=== PATIENT | male | born 1955 | race Caucasian/White ===

== ENCOUNTER 2020-02-06 13:52 | Outpatient (CLI) | payer MEDICARE, SELFPAY ==
--- NOTE | ~2020-02-06 | XR_ITS ---
XR chest 2V DATE: 02/06/2020 14:19 INDICATION: Morning Cough. TECHNIQUE: PA and lateral views COMPARISON: 06/26/2008 PA and lateral chest FINDINGS: Normal heart size. No hilar or mediastinal enlargement. Mild aortic calcification and unfol ding. Moderate bilateral hyperinflation. No pulmonary infiltrate or consolidation, pleural effusion or pulmonary vascular congestion or pneumo thorax. Diffuse idiopathic skeletal hyperostosis of the thoracic spine. Moderate osteopenia is suggested. IMPRESSION: Moderate bilateral pulmonary hyperinflation. No active cardiopulmonary disease Reviewed, dictated and finalized at location B. IMPRESSION: Moderate bilateral pulmonary hyperinflation. No active cardiopulmon robbie disease
== END 2020-02-06 13:53 | disposition home or self-care (01) ==
LOC: CHSLAB 13:56
PROVIDERS: PCP Family Medicine; Visit Provider Family Medicine
DX: R05 Cough (principal)
CPT/HCPCS: 71046

== ENCOUNTER 2020-02-09 08:38 | Outpatient (CLI) | payer MEDICARE, SELFPAY | END 2020-02-09 08:39 | disposition home or self-care (01) | PROVIDERS: PCP Family Medicine; Visit Provider Family Medicine | DX: R05 Cough (principal) | CPT/HCPCS: 94060; 94726; 94729 ==

== ENCOUNTER 2020-06-24 12:20 | Outpatient (CLI) | payer MEDICARE, SELFPAY ==
[2020-06-24 13:46] LABS: Influenza Control Valid (Valid)
[2020-06-24 13:47] LABS: SARS-CoV-2 Ag Negative (Negative)
== END 2020-06-24 12:21 | disposition home or self-care (01) ==
LOC: CHSLAB 12:23
PROVIDERS: PCP Family Medicine; Visit Provider Family Medicine
DX: J01.90 Acute sinusitis, unspecified (principal); Z20.828 Contact with and (suspected) exposure to other viral communicable diseases
CPT/HCPCS: 36415; 87426; 87804

== ENCOUNTER 2020-07-05 09:09 | Outpatient (CLI) | payer MEDICARE, SELFPAY ==
--- NOTE | ~2020-07-05 | XR_ITS ---
XR lumbar spine 2-3V DATE: 07/05/2020 09:35 INDICATION: Chronic low back pain. Several surgeries. TECHNIQUE: AP, lateral, coned lateral lumbosacral views COMPARISON: 07/09/2006 portable lateral lumbar spine views FINDINGS: Status post posterior spinal fusion with pedicle screws and rods at L2-L5. No pedicle screw or richard fracture or displacement is noted. There is interbody spinal fusion at L2-3, L3-4 and L4-5. The interbody device at L4-5 projects life educator iorly over the lumbar spinal canal, likely contributing to the lumbar spinal stenosis at this level. There is retrolisthesis at the L2-3 level. There is anterolisthesis at L3-4 and L4-5. There is mild concavity of the superior vertebral endplates of L2 and L3 with mild anterior wedging o f these vertebral bodies. IMPRESSION: Postoperative changes of the lumbar spine including posterior and interbody spinal fusion at L2-L5 Interbody fusion device at L4-5 projects posteriorly at the lumbar spinal canal, likely contributing to spinal stenosis Mild retrolisthesis at L2-3 and anterolisthesis at L3-4 and L4-5 Reviewed, dictated and finalized at location B. SEWER IMPRESSION: Postoperative changes of the lumbar spine including posterior and i nterbody spinal fusion at L2-L5 Interbody fusion device at L4-5 projects posteriorly at the lumbar spinal canal , likely contributing to spinal stenosis Mild retrolisthesis at L2-3 and anterolisthesis at L3-4 and L4-5
== END 2020-07-05 09:10 | disposition home or self-care (01) ==
LOC: CHSLAB 09:11 → CHSIMG 09:13
PROVIDERS: PCP Nurse Practitioner Adult Health; Visit Provider Nurse Practitioner Adult Health
DX: M54.5 Low back pain (principal)
CPT/HCPCS: 72100

== ENCOUNTER 2020-07-15 15:56 | Outpatient (CLI) | payer MEDICARE, SELFPAY ==
[2020-07-15 16:37] LABS: Influenza Control Valid (Valid); SARS-CoV-2 Ag Negative (Negative)
== END 2020-07-15 15:57 | disposition home or self-care (01) ==
LOC: CHSLAB 15:59
PROVIDERS: PCP Family Medicine; Visit Provider Family Medicine
DX: R05 Cough (principal); Z20.828 Contact with and (suspected) exposure to other viral communicable diseases
CPT/HCPCS: 87426; 87804

== ENCOUNTER 2020-12-24 08:12 | Outpatient (CLI) | payer MEDICARE, SELFPAY ==
--- NOTE | ~2020-12-24 | XR_ITS ---
EXAMINATION: XR chest 2V 12/24/2020 08:34 INDICATION: Cough. History of asbestos exposure. PROCEDURE: 2 view chest COMPARISON: 02/06/2020 FINDINGS: The lungs are clear. The cardiomediastinal silhouette is within normal limits. There are no pleural effusions. There is no pneumothorax suspected. IMPRESSION: 1: NO ACUTE CARDIOPULMONARY DISEASE. Reviewed, dictated and finalized at location D.
== END 2020-12-24 08:13 | disposition home or self-care (01) ==
LOC: CHSIMG 08:14
PROVIDERS: PCP Family Medicine; Visit Provider Family Medicine
DX: R05 Cough (principal)
CPT/HCPCS: 71046

== ENCOUNTER 2021-03-10 08:01 | Outpatient (RCR) | payer MEDICARE, SELFPAY ==
--- NOTE | 2021-03-10 08:03 | PTOPEVAL ---
Thank you for referring Ned Kimbrough to [facility].? The patient is scheduled to be seen for therapy? __2__x/week for 8 visits. Please review, sign, date and return this plan of care KRISTA. I agree with and certify that the following plan of care is medically necessary. Referring Physician Date Admitting Provider: Attending Provider: Dwight Arredondo, Referring Provider: *PT Outpatient Evaluation Start: 03/10/21 07:36 Freq: Status: Active Protocol: Document 03/10/21 07:36 HERNAN (Rec: 03/10/21 08:03 HERNAN [id number]) Therapy Assessment Status Assessment Status Assessment Status Evaluation Evaluation Information Problem Diagnosis left shoulder pain, biceps tendonitis Onset 02/07/21 Subjective Information Pt. reports that he was at a Query Text:As Reported By Patient/ baseball game about 1 month Family ago and was dodging a foul ball and fell over onto the left shoulder. He reports that he has noticed increased pain since. He went to the doctor last week and recieved a cortisone injection, which has helped to reduce pain. He still describes pain in the front of the left shoulder. He reports most pain with reaching overhead and behind the back. He states that pain is more of a dull ache. He reports pain with sleeping at night. He does wake frequently due to pain. He reports that he is able to complete most all IADL's, just with pain. He reports that his goal is to reduce his left shoulder pain. Diagnostic Tests X-Rays For This Problem Yes Prior Level of Function Activity Level (Last 3 Months) Occupation retired Hand Dominance Left Activity of Daily Living Ability Independent Indoor/Home Mobility Independent Community Mobility Independent Stairs Ability Independent Functional Cognition (Planning, Shopping Independent , Taking Medications) Cooking Yes Cleaning Yes Laundry Yes Shopping Yes Driving Yes Pain
--- NOTE | 2021-04-03 14:04 | PTOPEVAL ---
Thank you for referring Ned Kimbrough to [facility].? The patient is scheduled to be seen for therapy? ____x/week for ___ weeks. Please review, sign, date and return this plan of care KRISTA. I agree with and certify that the following plan of care is medically necessary. Referring Physician Date Admitting Provider: Attending Provider: Dwight Arredondo, Referring Provider: *PT Outpatient Evaluation Start: 03/10/21 07:36 Freq: Status: Active Protocol: Document 04/03/21 13:22 [facility] (Rec: 04/03/21 14:04 [facility] [id number]) Evaluation Information Problem Diagnosis left shoulder pain, biceps tendonitis Onset 02/07/21 Additional Evaluation Detail quick dash = 6% functional deficits Subjective Information patient reports he feels Good Query Text:As Reported By Patient/ this date. he reports no Family pain in the L shoulder today, and really no pain to speak of in the last week. he reports he has been doing less normal activities such as working on his cars, but reports he has been traveling more and caring for his more at home. Pain Assessment Timing of Pain Assessment Timing of Pain Assessment Assessment Pain Scale Pain Scale Used Numeric (1 - 10) Self Report Pain Assessment Left Shoulder(s) Reported Pain Level 0 Greatest Pain Intensity 1 Pain Score Pain Score 0: Self Report Interventions Used Interventions Used By Clinicians Electrical Stimulation, Exercise,Heat Upper Extremity Range of Motion General Upper Extremity Range of Motion Gross Upper Extremity Range of Motion 155 degrees arom L shoulder Comments flexion 80 degrees arom L shoulder ER 50 degrees arom L shoulder IR Upper Extremity Muscle Strength Testing General Upper Extremity Strength Gross Upper Extremity Strength Comments -left shoulder flexion 4+/5 -left shoulder ER 5/5 -left shoulder IR 5/5 General Exercise General Exercises Exercise Description -PROM left shoulder all planes Query Text:Record Sets, Reps, x5 min Resistance, and Position -TB scap retraction green x 25 -TB shoulder ex green x 25 -TB left IR/ ER green x 25 -AROM shoulder flexion, scaption 2# x 20 ea -biceps curls 3lb x20
== END 2021-04-03 08:44 | disposition home or self-care (01) ==
LOC: CHSPT 08:01
PROVIDERS: PCP Family Medicine; Visit Provider Orthopaedic Surgery
DX: M25.512 Pain in left shoulder (principal); M75.22 Bicipital tendinitis, left shoulder
CPT/HCPCS: 97014; 97110; 97140; 97161; G0283

== ENCOUNTER 2021-06-03 07:19 | Outpatient (CLI) | payer MEDICARE, SELFPAY ==
[2021-06-03 08:22] LABS: Cholesterol 171 mg/dL (0-200); HDL Direct 53 mg/dL (40-60); LDL Cholesterol Calculated 89 mg/dL (<130); Triglycerides 145 mg/dL (0-150)
== END 2021-06-03 07:20 | disposition home or self-care (01) ==
LOC: CHSLAB 07:21
PROVIDERS: PCP Family Medicine; Visit Provider Internal Medicine Cardiovascular Disease
DX: I10 Essential (primary) hypertension (principal)
CPT/HCPCS: 36415; 80061

== ENCOUNTER 2021-09-08 07:50 | Outpatient (RCR) | payer MEDICARE, SELFPAY ==
--- NOTE | 2021-09-08 09:22 | PTOPEVAL ---
Thank you for referring Ned Kimbrough to [facility] The patient is scheduled to be seen for therapy? __3__x/week for 2 weeks and 2x/week x 2 weeks for 10 visits. Please review, sign, date and return this plan of care KRISTA. I agree with and certify that the following plan of care is medically necessary. Referring Physician Date Admitting Provider: Attending Provider: Dwight Arredondo, Referring Provider: *PT Outpatient Evaluation Start: 09/08/21 08:01 Freq: Status: Active Protocol: Document 09/08/21 08:02 HERNAN (Rec: 09/08/21 08:58 HER[facility]N [id number]) Therapy Assessment Status Assessment Status Assessment Status Evaluation Evaluation Information Problem Diagnosis left shoulder pain, biceps tenonitis Onset 08/08/21 Subjective Information Pt. reports that he has had Query Text:As Reported By Patient/ left shoulder pain for at Family least the past month. He describes pain on top of the shoulder and lateral brachial region. He received an injection last week which has helped to decreased. He reports pain is most notable at night and disrupting his sleep. He reports that he is very active at home and can bother him with described arms extended position. He reports that his goal for treatment is to decrease his shoulder pain. Prior Level of Function Comments Additional Prior Level of Function Pt. is independent with all Comments IADL's and continues to complete IADL's despite pain. Pt. had not difficulty with sleep prior to the past month. Pain Assessment Timing of Pain Assessment Timing of Pain Assessment Pre-Treatment Pain Scale Pain Scale Used Numeric (1 - 10) Self Report Pain Assessment Left Shoulder(s) Reported Pain Level 5 Pain Description Aching Pain Frequency Intermittent Lowest Pain Intensity 0 Greatest Pain Intensity 7 Pain Score Pain Score 5: Self Report Interventions Used Interventions Used By Clinicians Electrical Stimulation, Exercise,Heat Upper Extremity Range of Motion General Upper Extremity Range of Motion Gross Upper Extremity Range of Motion -right shoulder flexion 142 Comments
--- NOTE | 2021-10-03 08:37 | PTOPEVAL ---
Thank you for referring Ned Kimbrough to [facility].? The patient is scheduled to be seen for therapy? ____x/week for ___ weeks. Please review, sign, date and return this plan of care KRISTA. I agree with and certify that the following plan of care is medically necessary. Referring Physician Date Admitting Provider: Attending Provider: Dwight Arredondo, Referring Provider: *PT Outpatient Evaluation Start: 09/08/21 08:01 Freq: Status: Active Protocol: Document 10/03/21 07:26 [facility] (Rec: 10/03/21 08:37 [facility] [id number]) Therapy Assessment Status Assessment Status Assessment Status Re-evaluation Evaluation Information Problem Diagnosis left shoulder pain, biceps tenonitis Onset 08/08/21 Additional Evaluation Detail quick dash = 25% functionally declined Subjective Information patient reports he feels Query Text:As Reported By Patient/ Alright this date. he reports Family he has pain in the L shoulder still, and is most affected by popping and cathing in the shoulder with overhead and behind head activities. Pain Assessment Timing of Pain Assessment Timing of Pain Assessment Assessment Pain Scale Pain Scale Used Numeric (1 - 10) Self Report Pain Assessment Left Shoulder(s) Reported Pain Level 3 Greatest Pain Intensity 5 Pain Score Pain Score 3: Self Report Interventions Used Interventions Used By Clinicians Activity or ADL's,Education, Electrical Stimulation, Exercise,Heat Upper Extremity Range of Motion General Upper Extremity Range of Motion Gross Upper Extremity Range of Motion -left shoulder flexion 150 Comments degrees -left shoulder IR 60 degree -left shoulder ER 78 degrees functional reaching overhead, behind head, and behind back are more painful motions noted popping and catching in the shoulder. Upper Extremity Muscle Strength Testing General Upper Extremity Strength Gross Upper Extremity Strength Comments -right shoulder fleixon 5/5 -left shoulder flexion 4+/5 -right shoulder abduction 5/5 -left shoulder abduction 4/5 - pain -right shoulder ER 5/5 -left shoulder ER 4/5
== END 2021-10-03 09:47 | disposition home or self-care (01) ==
LOC: CHSPT 07:50
PROVIDERS: Visit Provider Orthopaedic Surgery
DX: M25.512 Pain in left shoulder (principal); M75.22 Bicipital tendinitis, left shoulder
CPT/HCPCS: 97014; 97110; 97140; 97161; G0283

== ENCOUNTER 2021-12-30 11:23 | Outpatient (CLI) | payer MEDICARE, SELFPAY ==
--- NOTE | ~2021-12-30 | XR_ITS ---
XR chest 2V DATE: 12/30/2021 11:41 INDICATION: Cough TECHNIQUE: PA and lateral views COMPARISON: 12/24/2020 2 view chest FINDINGS: Normal heart size. There is aortic calcification and minimal tortuosity. No hilar or medias tinal enlargement. Lungs are moderately hyperinflated but clear of infiltrate or consolidation. No pleural effusion or p ulmonary vascular congestion or pneumothorax. Degenerative spurring of the thoracic spine. IMPRESSION: No active cardiopulmonary disease or significant change since 12/24/2020 Reviewed, dictated and finalized at location A. IMPRESSION: No active cardiopulmonary disease or significant change since 021
== END 2021-12-30 11:24 | disposition home or self-care (01) ==
LOC: CHSIMG 11:26
PROVIDERS: PCP Family Medicine; Visit Provider Family Medicine
DX: R05.9 Cough, unspecified (principal)
CPT/HCPCS: 71046

== ENCOUNTER 2022-02-05 09:06 | Outpatient (CLI) | payer MEDICARE, SELFPAY ==
--- NOTE | ~2022-02-05 | XR_ITS ---
XR chest 2V DATE: 02/05/2022 09:20 INDICATION: Chronic cough. Possible sinus drainage. TECHNIQUE: 2 views COMPARISON: 12/30/2021 PA and lateral chest FINDINGS: Normal heart size. No hilar or mediastinal enlargement. There is aortic calcification and m inimal aortic unfolding. The lungs are moderately hyperinflated but clear of infiltrate or consolidation. No pleural effusion or pulmonary vascular congestion or pneumothorax. Osteopenia. Degenerative spurring of the thoracic spine. Hardware is noted at the lumbar spine. IMPRESSION: Moderate hyperinflation; no active cardiac pulmonary disease Mild aortic atherosclerosis Diffuse idiopathic skeletal hyperostosis of the thoracic spine. Osteopenia Reviewed, dictated and finalized at location B.
== END 2022-02-05 09:07 | disposition home or self-care (01) ==
LOC: CHSIMG 09:10
PROVIDERS: PCP Family Medicine; Visit Provider Family Medicine
DX: R05.3 Chronic cough (principal)
CPT/HCPCS: 71046

== ENCOUNTER 2022-02-06 09:01 | Outpatient (CLI) | payer MEDICARE, SELFPAY | END 2022-02-06 09:02 | disposition home or self-care (01) | LOC: CHSCARD 09:02 | PROVIDERS: PCP Family Medicine; Visit Provider Family Medicine | DX: R05.3 Chronic cough (principal) | CPT/HCPCS: 94060; 94726; 94729 ==

== ENCOUNTER 2022-02-11 13:06 | Outpatient (CLI) | payer MEDICARE, SELFPAY ==
--- NOTE | ~2022-02-11 | DEXA_ITS ---
Bone Density Report Name: VAUGHN WATSON Age: 66 Sex: Male Ethnicity: White Date of : 1955 Indication: height loss; prior fracture; Referring Provider: Hua Nair Study: Bone densitometry was performed. Exam Date: February 11, 2022 Accession number: [id number] Bone Density: Region BMD T-score Z-score Classification Femoral Neck (Left) 0.851 -0.6 0.4 Normal Total Hip (Left) 0.973 -0.4 0.1 Normal Femoral Neck (Right) 0.837 -0.7 0.3 Normal Total Hip (Right) 0.963 -0.5 0.0 Normal Femoral Neck Mean 0.844 -0.6 0.4 Normal Total Hip Mean 0.968 -0.4 0.1 Normal World Health Organization criteria for BMD impression classify patients as: Normal (T-score at or above -1.0), Osteopenia (T-score between -1.0 and -2.5), or Osteoporosis (T-score at or below -2.5). 10-year Fracture Risk: FRAX not reported because: All T-scores for Spine Total, Hip Total, Femoral Neck at or above -1.0 Clinical Information Provided by Patient: Has had a low trauma fracture Patient maximum height was 74 No regular weight bearing exercise Drinks caffeinated beverages Impression: The patient has normal bone mass. The patient has risk factors, including: previous fracture. Discussion: BONE DENSITY IS ABOVE THE MINIMUM DESIRABLE LEVEL AT ALL SKELETAL SITES TESTED. This patient?s bone mineral density is above the minimum desirable level (T-score -1.0 or better) at all sites measured. The patient should follow a healthful lifestyle (good nutrition with adequate calcium and vitamin D, and appropriate weight-bearing exercise). Follow-Up: Consider repeating this study in 5 years or sooner if there is some new clinical indication. Reported by: Dr. Benjamin Colunga on 02/11/2022 1:35:00 PM. Reviewed, dictated and finalized at location A. [facility]
== END 2022-02-11 13:07 | disposition home or self-care (01) ==
LOC: CHSIMG 13:08
PROVIDERS: PCP Family Medicine; Visit Provider Family Medicine
DX: M85.88 Other specified disorders of bone density and structure, other site (principal)
CPT/HCPCS: 77080

== ENCOUNTER 2023-02-18 14:54 | Outpatient (RCR) | payer MEDICARE, SELFPAY ==
--- NOTE | 2023-02-18 16:11 | PTOPEVAL1 ---
Assessment and note entered by JT File, PT Evaluation Information Assessment Status Evaluation Diagnosis s/p lumbar decompression, low back pain, poor posture Onset 02/04/23 Subjective Information patient reports he has had no recent surgeries to the lumbar spine. he reports no falls and no accident. he reports he is coming to therapy at the reccomendation of his doctor to try and walk talle, stand taller, and improve his core strength . he reports he has had some recent scans showing DDD of the lumbar spine. he has had surgery in the past for a spinal decompression. he does have hardware in the lower back. patient reports he has pain all the time. he reports most times it is tolerable, but increases with bending forward. Reported Pain Level Pain Score 5: Self Report Assessment PT Clinical Summary mr. cortez is a 68 yo man who presents to skilled PT services for evaluation and treatment of lower back pain, mm tightness, and poor posture . he would benefit from continued skilled PT to improve his objective/functional deficits. he would also benefit from evaluation of his balance/ proprioception as patient mentions his balance is not the best. Plan of Care Interventions Electrical Stimulation,Gait Training,Hot Pack/Cold Pack,Manual Therapy,Neuro Re-education,Patient/ Caregiver Educati,Therapeutic Activities, Therapeutic Exercise PT Services Indicated Yes Treatment Frequency and 3x weekly for 9 visits Duration These treatments will address the objective and functional deficits as defined above. The patient will be advanced safely and appropriately in order for the patient to progress towards his/her prior level of function. Additional exercises will be introduced and as well as a comprehensive home exercise program upon discharge, if needed, ?to ensure carryover of functional gains achieved in the clinic. This treatment plan has been reviewed and agreement upon by the patient.
--- NOTE | 2023-02-18 16:12 | OPREHPOC ---
Outpatient Therapy Plan of Care This is a Multidisciplinary Plan of Care that may contain components documented by all disciplines (PT, OT, and ST.) PT Problem 1 PT Problem #1 Knowledge Deficit PT Goal 1 Goal 1. independent and compliant with HEP to improve tolerance for continued skilled PT and exercises. Target Visit 4 PT Problem 2 PT Problem #2 Impaired Flexibility PT Goal 1 Goal 1. improve flexibility of the bilateral hamstrings to 10 degrees or less per the 90/90 test 2. improve bilateral quadriceps mm flexibility to 25 degrees or less 3. mild or less tightness of the bilateral hip flexors to improve posture Target Visit 9 PT Problem 3 PT Problem #3 Impaired Strength PT Goal 1 Goal 1. improve bilateral hip strength to 4/5 abudction and extension 2. 5/5 R knee extension Target Visit 9 PT Problem 4 PT Problem #4 Impaired Functional Mobil PT Goal 1 Goal 1. patient to display improved posture with improved lumbar lordosis, retracted shoulders, and less hip flexion moment. 2. tinetti to display moderate or less fall risk Target Visit 9
--- NOTE | 2023-03-17 09:10 | PTOPREEVAL ---
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 He notes that he has been consistent performing HEP at home. He states that his back pain at worst in the past week has reached 3-4/10 at worst depending on what he does. Patient notes that he has noticed lower intensity and less freqeunt back pain since starting physical therapy. He notes his balance is very limited. Reported Pain Level Pain Score 0: Self Report Assessment PT Clinical Summary Mr. Kimbrough has attended 9 sessions of skilled PT to address low back pain. He reports lower pain levels in the lower back since starting PT, as well as increased flexibility. Patient demonstrates slightly improved LE strength, muscle length, and lumbar ROM this date. He currently has 46% functional decline as assessed by the Oswestry, decreasing from 48% at the initial evaluation. Patient is a high fall risk as assessed by the Tinneti balance test. Patient would benefit from continued skilled therapy to address remaining strength and balance deficits in order to improve his function and safety in the home and community. Plan of Care Interventions Gait Training,Neuro Re-education,Patient/Caregiver Educati,Therapeutic Activities,Therapeutic Exercise PT Services Indicated Yes Treatment Frequency and continue POC 2x/week for additional 8 visits Duration These treatments will address the objective and functional deficits as defined above. The patient will be advanced safely and appropriately in order for the patient to progress towards his/her prior level of function. Additional exercises will be introduced and as well as a comprehensive home exercise program upon discharge, if needed, ?to ensure carryover of functional gains achieved in the clinic. This treatment plan has been reviewed and agreement upon by the patient.
--- NOTE | 2023-03-17 09:10 | OPREHPOC ---
Outpatient Therapy Plan of Care This is a Multidisciplinary Plan of Care that may contain components documented by all disciplines (PT, OT, and ST.) PT Problem 1 PT Problem #1 Knowledge Deficit PT Goal 1 Goal 1. independent and compliant with HEP to improve tolerance for continued skilled PT and exercises. Target Visit 4 Progress Partially Met Comment continue to progress and update HEP PT Problem 2 PT Problem #2 Impaired Flexibility PT Goal 1 Goal 1. improve flexibility of the bilateral hamstrings to 10 degrees or less per the 90/90 test 2. improve bilateral quadriceps mm flexibility to 25 degrees or less 3. mild or less tightness of the bilateral hip flexors to improve posture Target Visit 17 Progress Partially Met Comment goals 1 and 2 met, continue to address goal 3 PT Problem 3 PT Problem #3 Impaired Strength PT Goal 1 Goal 1. improve bilateral hip strength to 4/5 abudction and extension 2. 5/5 R knee extension Target Visit 17 Progress Partially Met Comment goal 2 met, continue to address goal 1 PT Problem 4 PT Problem #4 Impaired Functional Mobil PT Goal 1 Goal 1. patient to display improved posture with improved lumbar lordosis, retracted shoulders, and less hip flexion moment. 2. tinetti to display moderate or less fall risk Target Visit 17 Progress Partially Met Comment continue to address
--- NOTE | 2023-04-13 08:42 | OPREHPOC ---
Outpatient Therapy Plan of Care This is a Multidisciplinary Plan of Care that may contain components documented by all disciplines (PT, OT, and ST.) PT Problem 1 PT Problem #1 Knowledge Deficit PT Goal 1 Goal 1. independent and compliant with HEP to improve tolerance for continued skilled PT and exercises. Target Visit 21 Progress Partially Met Comment continue to progress and update HEP PT Problem 2 PT Problem #2 Impaired Flexibility PT Goal 1 Goal 1. improve flexibility of the bilateral hamstrings to 10 degrees or less per the 90/90 test 2. improve bilateral quadriceps mm flexibility to 25 degrees or less 3. mild or less tightness of the bilateral hip flexors to improve posture Target Visit 21 Progress Partially Met Comment goals 1 and 2 met, continue to address goal 3 PT Problem 3 PT Problem #3 Impaired Strength PT Goal 1 Goal 1. improve bilateral hip strength to 4/5 abudction and extension 2. 5/5 R knee extension Target Visit 21 Progress Partially Met Comment goal 2 met, continue to address goal 1 PT Problem 4 PT Problem #4 Impaired Functional Mobil PT Goal 1 Goal 1. patient to display improved posture with improved lumbar lordosis, retracted shoulders, and less hip flexion moment. 2. tinetti to display moderate or less fall risk Target Visit 21 Progress Partially Met Comment improved but continue to progress
--- NOTE | 2023-04-13 08:42 | PTOPREEVAL ---
Assessment and note entered by Mariella Chavis DPT Evaluation Information Assessment Status Re-evaluation Diagnosis s/p lumbar decompression, low back pain, poor posture Onset 02/04/23 Subjective Information Patient reports that he continues to get stronger with PT and notices he can stand and walk longer periods of time. He reports that he still struggles with balance and standing in one place. He thinks he would benefit from continued PT. Reported Pain Level Pain Score 0: Self Report Assessment PT Clinical Summary Patient has attended 17 visits of skilled PT. He has demonstrated impoved LE strength, improved LE flexibility and improved balance but continues to have pain with prolonged activity. He reports improved ability to walk but still has pain with stationary standing. He would benefit from continued skilled PT to address impairments to return to PLOF. Plan of Care Interventions Gait Training,Neuro Re-education,Patient/Caregiver Educati,Therapeutic Activities,Therapeutic Exercise PT Services Indicated Yes Treatment Frequency and continue 1x weekly for 4 visits Duration These treatments will address the objective and functional deficits as defined above. The patient will be advanced safely and appropriately in order for the patient to progress towards his/her prior level of function. Additional exercises will be introduced and as well as a comprehensive home exercise program upon discharge, if needed, ?to ensure carryover of functional gains achieved in the clinic. This treatment plan has been reviewed and agreement upon by the patient.
--- NOTE | 2023-05-11 08:33 | OPREHPOC ---
Outpatient Therapy Plan of Care This is a Multidisciplinary Plan of Care that may contain components documented by all disciplines (PT, OT, and ST.) PT Problem 1 PT Problem #1 Knowledge Deficit PT Goal 1 Goal 1. independent and compliant with HEP to improve tolerance for continued skilled PT and exercises. Target Visit 21 Progress Met Comment . PT Problem 2 PT Problem #2 Impaired Flexibility PT Goal 1 Goal 1. improve flexibility of the bilateral hamstrings to 10 degrees or less per the 90/90 test 2. improve bilateral quadriceps mm flexibility to 25 degrees or less 3. mild or less tightness of the bilateral hip flexors to improve posture Target Visit 21 Progress Partially Met Comment . PT Problem 3 PT Problem #3 Impaired Strength PT Goal 1 Goal 1. improve bilateral hip strength to 4/5 abudction and extension 2. 5/5 R knee extension Target Visit 21 Progress Met Comment . PT Problem 4 PT Problem #4 Impaired Functional Mobil PT Goal 1 Goal 1. patient to display improved posture with improved lumbar lordosis, retracted shoulders, and less hip flexion moment. 2. tinetti to display moderate or less fall risk Target Visit 21 Progress Met Comment .
--- NOTE | 2023-05-11 08:34 | PTOPDC ---
Assessment and note entered by Mariella Chavis DPT Evaluation Information Assessment Status Re-evaluation Diagnosis s/p lumbar decompression, low back pain, poor posture Onset 02/04/23 Subjective Information Patient reports that standing in one place continues to cause back pain. He reports his balance has improved some. He reports he is independent with HEP Reported Pain Level Pain Score 0: Self Report Assessment PT Clinical Summary Patient was seen for 21 visits of skilled PT. He made good progress towards goals but did not meet all. He demonstrates improved balance with Tinetti scoring and improved strength. He continues to have pain with standing but does report improvement. He is independent with HEP and is appropriate for DC at this time. Plan of Care PT Services Indicated No
== END 2023-05-11 14:12 | disposition home or self-care (01) ==
LOC: CHSPT 14:54
DX: M47.817 Spondylosis without myelopathy or radiculopathy, lumbosacral region (principal); Z98.890 Other specified postprocedural states
CPT/HCPCS: 97110; 97112; 97161; 97530; 97750

== ENCOUNTER 2023-10-29 16:32 | Emergency (ER) | payer MEDICARE, SELFPAY ==
--- NOTE | ~2023-10-29 | XR_ITS ---
XR hip LT 2V w AP pelvis DATE: 10/29/2023 16:57 INDICATION: Left hip and sacroiliac joint pain, radiating down leg TECHNIQUE: AP pelvis. AP and lateral views of left hip COMPARISON: None FINDINGS: Pedicle screws and rods are noted lumbar spine. No pelvic fracture or bone destruction. The pubic symphysis and sacroiliac joints are intact. Hip stephany nt spaces are symmetric and relatively well preserved. No fracture or dislocation, avascular necrosis or bone destruction of the left hip. IMPRESSION: Unremarkable left hip Posterior lumbar spinal surgical fusion Reviewed, dictated and finalized at location A.
[2023-10-29 16:35] VITALS: BP 147/75; PULSE 97; RESP 20; TEMP 37.4; O2SAT 94
--- NOTE | 2023-10-29 16:39 | ED.EXTPRO ---
HPI - Extremity Problem General Chief complaint: Extremity Problem,Nontraumatic Stated complaint: LOWER EXTREMITY PAIN Time Seen by Provider: 10/29/23 16:38 Source: patient Mode of arrival: ambulatory Limitations: no limitations History of Present Illness HPI Narrative: Ned is a 68-year-old male patient presenting to the clinic today with complaints of left posterior hip pain with pain radiating down his left leg. Reports this been going on for 3 weeks. Does have an appointment with Dr. Marino next week however he did not feel as though he could wait is is pain was getting too bad. States the pain is worse with ambulation. Denies any known injury to the left hip. History of spinal fusion. Denies any saddle anesthesia or loss of bowel bladder. Related Data Home Medications Medication Instructions Recorded Confirmed lansoprazole 30 mg capsule,delayed 30 mg PO DAILY 09/28/19 08/23/23 release tramadol 50 mg tablet 50 mg PO Q6H PRN 09/28/19 08/23/23 meloxicam 15 mg tablet 15 mg PO DAILY 02/18/21 08/23/23 omega-3 fatty acids 500 mg capsule 1,000 mg PO DAILY 02/18/21 08/23/23 aspirin 81 mg tablet,delayed 81 mg PO DAILY 06/02/21 08/23/23 release (Adult Aspirin Regimen) finasteride 5 mg tablet 5 mg PO DAILY 02/22/23 08/23/23 tamsulosin 0.4 mg capsule 0.4 mg PO DAILY 02/22/23 08/23/23 Allergies Allergy/AdvReac Type Severity Reaction Status Date / Time No Known Allergies Allergy Verified 10/29/23 16:37 Review of Systems Review of Systems: Pertinent positives per HPI. Patient denies any fever, chills, rash, headache, visual changes, dizziness, cough, runny nose, sore throat, shortness of breath, chest pain, palpitations, nausea, vomiting, diarrhea, constipation, abdominal pain, or any urinary issues. [facility] Past Medical History Medical History Arthritis Surgical History Surgical History H/O hernia repair History of right knee joint replacement Previous back surgery Social History Social History (Reviewed 10/29/23 @ 16:51 by OLIVIA Morales Smoking status: Never smoker Alcohol intake: never Do You Feel Safe in your Home?: Yes Lack of Transportation: No Lack of Food: Never True Current Housing: I Have Housing Concerned About Future Housing: No Difficulty Paying Gas/Electric Bills: No Difficulty Paying for Meds: No Currently Unemployed: No Education: Trade/Vocational Certificate Difficulty w/ Childcare or Family Care: Decline to Answer Comments At the time of my signature, I reviewed and agree with the nursing past medical, surgical, social, and family history. There is no relevant family history pertinent to the patient complaint. Exam Narrative: General: Well-developed, well nourished, in no apparent distress Head: Normocephalic, atraumatic. Cardio: Regular rate and rhythm, s1 and s2 normal, no murmur appreciated. Resp: Clear to auscultation bilaterally, no rhonchi, rales, wheezing or rubs. Musculoskeletal: No deformity,tender to palpation over the left posterior hip/SI joint with pain radiating into the front thigh, grossly normal range of motion, bilateral patellar reflex 1+, muscle strength strong and equal, peripheral pulse strong, 1+ pitting edema in bilateral lower extremities, no cyanosis, sitting in a wheelchair Course Course Emergency Course: Portions of this record may have been created with voice recognition software. Vital Signs Vital signs: Vital Signs Temperature 37.4 C 10/29/23 16:35 Pulse Rate 97 10/29/23 16:35 Respiratory Rate 20 10/29/23 16:35 Blood Pressure 147/75 H 10/29/23 16:35 Pulse Oximetry 94 10/29/23 16:35 Oxygen Delivery Room Air 10/29/23 16:35 Temperature 37.4 C 10/29/23 16:35 Pulse Rate 97 10/29/23 16:35 Respiratory Rate 20 10/29/23 16:35 Blood Pressure 147/75 H
== END 2023-10-29 17:29 | disposition home or self-care (01) ==
PROVIDERS: Emergency Provider Nurse Practitioner Family; PCP Family Medicine
DX: M53.3 Sacrococcygeal disorders, not elsewhere classified (principal); M19.90 Unspecified osteoarthritis, unspecified site; Z96.651 Presence of right artificial knee joint; Z98.1 Arthrodesis status; Z79.82 Long term (current) use of aspirin
CPT/HCPCS: 73502; 99283

== ENCOUNTER 2023-11-18 10:22 | Outpatient (CLI) | payer MEDICARE, SELFPAY ==
--- NOTE | ~2023-11-18 | MR_ITS ---
MRI of the lumbar spine Clinical History: Sacrococcygeal disorder Technique: Axial T2-weighted images, and sagittal T1-weighted, T2-weighted, and and T2 fat-sat images were acquired. Findings: There is posterior fusion from L2 through L5, with bilateral rods and transpedicular screws present. There is associated 3 mm retrolisthesis of L2 over L3. There are interbody fusion devices a t the L2-L3 L3-L4 disc spaces, and probably at the L4-L5 disc spaces well. There are extensive reacti ve marrow signal changes, but no overtly suspicious marrow signal abnormality seen. At L1-L2, there is moderate to severe degenerative disc narrowing. Diffuse disc bulge and severe face t arthropathy result in severe spinal canal stenosis/thecal sac compression. There is severe bilatera l neural foraminal, or mass. At L2-L3, there is advanced facet arthropathy, with minimal central canal stenosis. There is severe l eft neural foraminal compromise, and moderate right neural foraminal, right. At L3-L4, there is advanced facet arthropathy. No definite central canal stenosis. There is moderate bilateral neural foraminal narrowing. At L4-L5, the interbody fusion device is somewhat protruding into the left paracentral region. No fra nk spinal canal stenosis. There is moderate to advanced bilateral neural foraminal narrowing. At L5-S1, there is diffuse disc bulge with severe facet arthropathy. No titus central canal stenosis. There is probable severe bilateral neural foraminal narrowing. Paravertebral soft tissues are unremarkable. Impression: Posterior and interbody fusion extending from L2 through L5, as detailed above. Interbody device at t he L4-L5 disc space somewhat protrudes posteriorly into the left paracentral region. Severe degenerative spondylosis, as detailed above, especially at L1-L2. Reviewed, dictated and finalized at location . Impression: Posterior and interbody fusion extending from L2 through L5, as detailed above. Interbody device at the L4-L5 disc space somewhat protrudes posteriorly into t he left paracentral region. Severe degenerative spondylosis, as detailed above, especially at L1-L2.
--- NOTE | ~2023-11-18 | MR_ITS ---
EXAMINATION: MR pelvis wo con DATE: 11/18/2023 11:49 INDICATION: Sacrococcygeal disorder with low back and buttock pain. TECHNIQUE: Magnetic resonance imaging (MRI) of the pelvis was performed without intravenous contrast. Sequences included axial, sagittal and coronal T1-weighted FSE and T2-weighted FS FSE and sagittal fluid sensitive FSE STIR. COMPARISON: None. FINDINGS: Instrumented L2-L5 anterior and posterior spinal fusion with interbody fusion devices at each level a nd bilateral vertical richard and pedicle screw fixation. There is marrow edema and decreased T1 signal a t both sides of the left sacroiliac joint. No definite fracture line is identified. There is small am ount of soft tissue edema along the margins of the left sacroiliac joint along with a couple small ga nglion cysts which extend from the anterior margin of the left sacral joint into the deep aspect of t he left iliac as muscle belly suggesting additional edema in the surrounding muscle belly. Appearance suggests an active inflammatory sacroiliitis. Remainder of the sacrum and coccyx are unremarkable. B one marrow signal is otherwise normal. Mild bilateral hip osteoarthritis. Small fat-containing left i nguinal hernia. There are few diverticula along the sigmoid colon without adjacent comparison to sugg est diverticulitis. Prostatomegaly. Bladder is unremarkable. No pathologically enlarged pelvic or ing uinal lymphadenopathy. IMPRESSION: 1. Asymmetric joint centered marrow signal changes and surrounding soft tissue edema at the left sacr oiliac joint without evident fracture line which suggests a unilateral active left sacroiliitis which could be either degenerative osteoarthritis or inflammatory including septic or aseptic etiologies s uch as in the setting gout, psoriatic arthritis or reactive arthritis. Reviewed, dictated and finalized at location A. IMPRESSION: 1. Asymmetric joint centered marrow signal changes and surrounding soft tissue edema at the left sacroiliac joint without evident fracture line which suggests a unilateral active left sacroiliitis which could be either degenerative osteo arthritis or inflammatory including septic or aseptic etiologies such as in the setting gout, psoriatic arthritis or reactive arthritis.
== END 2023-11-18 10:23 ==
PROVIDERS: PCP Family Medicine; Visit Provider Orthopaedic Surgery
DX: M54.50 Low back pain, unspecified (principal); M53.3 Sacrococcygeal disorders, not elsewhere classified; M79.89 Other specified soft tissue disorders; M43.06 Spondylolysis, lumbar region
CPT/HCPCS: 72148; 72195

== ENCOUNTER 2024-03-22 14:22 | Outpatient (CLI) | payer MEDICARE, SELFPAY ==
--- NOTE | ~2024-03-22 | XR_ITS ---
EXAMINATION: XR thoracic spine 3V DATE: 03/22/2024 14:54 INDICATION: Dorsalgia. TECHNIQUE: 3 views of thoracic spine on 5 radiographs were obtained. COMPARISON: Chest 2 views 02/05/2022 FINDINGS: There is 7 degrees levocurvature of thoracic spine. There is a compression fracture of T3. Intervertebral disc heights are normal. There are bridging endplate osteophytes at multiple levels in the spine, consistent with diffuse idiopathic skeletal hyperostosis (DISH). IMPRESSION: 1. Age-indeterminate compression fracture of T3. 2. DISH. Reviewed, dictated and finalized at location A.
[2024-03-22 14:51] LABS: Basophils Absolute Auto 0.02 K/mm3 (0.00-0.10); Basophils Percent Auto 0.3 % (0.0-1.0); Eosinophils Absolute Auto 0.06 K/mm3 (0.02-0.50); Eosinophils Percent Auto 0.9 % (1.0-6.0); Hematocrit 43.9 % (37.0-46.0); Hemoglobin 14.9 g/dL (12.4-15.3); Immature Granulocyte Absolute 0.03 K/mm3 (0.00-0.00); Immature Granulocyte Percent A 0.4 % (0.0-0.0); Lymphocytes Absolute Auto 1.53 K/mm3 (1.10-4.50); Lymphocytes Percent Auto 22.4 % (18.0-42.0); Mean Corpuscular HGB Conc 33.9 g/dL (32-36); Mean Corpuscular Hemoglobin 30.5 pg (27.0-31.0); Mean Platelet Volume 8.9 fl (8.7-11.0); Monocytes Absolute Auto 0.72 K/mm3 (0.10-0.90); Monocytes Percent Auto 10.5 % (2.0-11.0); Neutrophils Absolute Auto 4.47 K/mm3 (1.70-7.20); Neutrophils Percent Auto 65.5 % (50.0-70.0); Platelet Count Result 302 K/mm3 (150-420); Red Blood Count 4.88 M/mm3 (4.70-6.10); White Blood Count 6.8 K/mm3 (4.8-10.8)
[2024-03-24 09:49] LABS: Alanine Aminotransferase 16 U/L (6-50); Albumin Level 4.3 g/dL (3.5-5.1); Alkaline Phosphatase 85 U/L (38-126); Amylase 65 U/L (30-110); Anion Gap 13 mmol/L (4-12); Aspartate Amino Transferase 22 U/L (17-59); Bilirubin,Total 0.4 mg/dL (0.2-1.3); Blood Urea Nitrogen 13 mg/dL (9-20); Calcium 9.4 mg/dL (8.4-10.2); Carbon Dioxide 23 mmol/L (22-30); Chloride 101 mmol/L (98-107); Estimated Glomerular Filt Rate > 60; Glucose 103 mg/dL (65-110); Lipase 112 U/L (23-300); Osmolality Calculated 284 mOsm/kg (285-295); Potassium 3.8 mmol/L (3.4-5.0); Sodium 137 mmol/L (137-145)
== END 2024-03-22 14:23 | disposition home or self-care (01) ==
PROVIDERS: PCP Family Medicine; Visit Provider Family Medicine
DX: R10.9 Unspecified abdominal pain (principal); M54.9 Dorsalgia, unspecified; M48.54XA Collapsed vertebra, not elsewhere classified, thoracic region, initial encounter for fracture; M48.14 Ankylosing hyperostosis [Forestier], thoracic region
CPT/HCPCS: 36415; 72072; 80053; 82150; 83690; 85025

== ENCOUNTER 2024-03-30 08:12 | Outpatient (CLI) | payer MEDICARE, SELFPAY ==
--- NOTE | ~2024-03-30 | MR_ITS ---
EXAMINATION: MR thoracic spine wo con DATE: 03/30/2024 09:13 INDICATION: Dorsalgia. TECHNIQUE: Magnetic resonance imaging (MRI) of the thoracic spine was performed without intravenous c ontrast. COMPARISON: Thoracic spine radiographs 04/21/2024 FINDINGS: There is 4 degrees levocurvature of thoracic spine. There is mild chronic anterior wedging of T2 and T6 vertebral bodies. Intervertebral disc heights are normal. At T11-T12, the disc is bulgin g with mild central canal stenosis. At T12-L1, there is a central protrusion with mild central canal stenosis. There is multilevel facet joint osteoarthritis, severe in upper thoracic spine. On the righ t, there is mild neural foraminal stenosis at T4-T5. On the left, there is mild neural foraminal sten osis at T1-T2, T2-T3, T3-T4, T4-T5, T5-T6, and T11-T12. There are bridging endplate osteophytes at mu ltiple levels in the spine, consistent with diffuse idiopathic skeletal hyperostosis (DISH). The spin al cord signal intensity is normal. IMPRESSION: 1. Mild thoracic spondylosis. 2. DISH. Reviewed, dictated and finalized at location A.
== END 2024-03-30 08:13 | disposition home or self-care (01) ==
LOC: CHSIMG 08:16
PROVIDERS: PCP Family Medicine; Visit Provider Family Medicine
DX: M54.9 Dorsalgia, unspecified (principal); M43.04 Spondylolysis, thoracic region; M48.14 Ankylosing hyperostosis [Forestier], thoracic region
CPT/HCPCS: 72146

== ENCOUNTER 2024-11-20 13:03 | Outpatient (CLI) | payer MEDICARE, SELFPAY ==
--- NOTE | ~2024-11-20 | US_ITS ---
ULTRASOUND ANKLE BRACHIAL INDEX Ordering provider: Hua Nair MD History: . absent pedal pulse . Comparison: None. FINDINGS: Right brachial systolic blood pressure: 141 mmHg Left brachial systolic blood pressure: 158 mmHg Right ankle systolic blood pressure: 166 mmHg Left ankle systolic blood pressure: 1:15 2 mmHg Right ankle/arm index (PABLO): 1.23. Left ankle/arm index (PABLO): 1.08 Note regarding PABLO: --Normal= 1.0 or slightly greater. --Claudication (moderate stenosis or occlusive state)= 0.6 to 0.9. --Rest pain (severe occlusive states)= 0.5 or less. IMPRESSION: Normal bilateral PABLO. Reviewed, dictated and finalized at location A. IMPRESSION: Normal bilateral PABLO.
--- OUTSIDE RECORDS SUMMARY | 2024-11-20 13:35 | XMS_ITS | Clinical Summary ---
Author Organization [facility] Address [address] [place] [address] Care Team Providers Care Accounts Receivable Executive Name Role Phone Unavailable Primary Care Provider Unavailabl e Source Comments [facility],non-owned Affiliates and Associated Physician Practices is amultiple site organization consisting of ambulatory clinics and hospital sitesin [place], [place] and [place]. This disclosure is being madepursuant to the Care Everywhere program and may not contain all information available regarding this patient. Last updated 18.[facility] Allergies No known active allergies Medications * Be aware that medications may not be up to date on this document. Alwaysverify current medications with the patient. valsartan (DIOVAN) 80 MG tablet Take 1 (one) tablet by mouth 2 times daily 02/14/2020 Active traMADol (ULTRAM) 50 MG tablet Take 1 (one) tablet by mouth every 6 hours as needed for Pain 02/12/2020 Active OMEPRAZOLE PO Take 20 mg by mouth once daily Active ACETAMINOPHEN PO Take 500-1,000 mg by mouth every 6 hours as needed Active finasteride (Proscar) 5 MG tablet Take 1 (one) tablet by mouth once daily 09/17/2023 Active fluticasone propionate (Flonase) 50 MCG/ACT nasal spray [place] 1 (one) spray to 2 (two) sprays into each nostril 2 times daily 11/15/2023 Active meloxicam (Mobic) 15 MG tablet Take 1 (one) tablet by mouth once daily 10/28/2023 Active hydroCHLOROthia zide (Hydrodiuril) 25 MG tablet Take 1 (one) tablet by mouth once daily 10/05/2023 Active tamsulosin (Flomax) 0.4 MG capsule Take 1 (one) capsule by mouth once daily 09/23/2023 Active aspirin EC (Ecotrin) 81 MG tablet Take 1 (one) tablet by mouth once daily Active qmngm-[id number] ethyl esters (Lovaza) 1 g capsule Take 1 (one) capsule by mouth once daily Active predniSONE (Deltasone) 10 MG tablet Take 1 (one) tablet by mouth once daily 11/04/2023 Active HYDROcodone-godfrey taminophen ([place]) 5-325 MG tablet Take 1 (one) tablet by mouth every 6 hours as needed for Pain 11/23/2023 Active Active Problems Problem Noted Date Diagnosed Date Congenital pes cavus 02/10/2017 Overview (10/18/2017): ICD-10 update Varus deformity, not elsewhere classified, right knee 01/14/2016 Overview (10/18/2017): ICD-10 Update Peroneal tendinitis of right lower extremity Cavus deformity of right foot 01/28/2015 Overview (11/23/2023): Overview: ICD-10 update Genu varum of right lower extremity 11/13/2014 11/23/2023 Overview (11/23/2023): Overview: ICD-10 Update Primary osteoarthritis of right knee 11/05/2014 Postlaminectomy syndrome, not elsewhere classifi ed 03/31/2014 Arthrodesis status 03/31/2014 S/P lumbar spinal fusion 03/31/2014 024 Spinal stenosis of lumbar re gion without neurogenic claudication 01/29/2014 Lumbar stenosis 01/29/2014 11/23/2023 Spinal stenosis of lumbar re gion with neurogenic claudication 01/24/2014 Complication of surgical procedure 01/24/2014 11/23/2023 Social History Tobacco Use Types Packs/Day Years Used Date Smoking Tobacco: Never Passive Smoke Exposure: Never Smokeless Tobacco: Never Tobacco Cessation:Counseling Given: No Alcohol Use Standard Drinks/Week Comments No 0 (1 standard drink = 0.6 oz pur e alcohol) Sex and Gender Information Value Date Recorded Sex Assigned at Not on file 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 Gender Identity Not on file Sexual Orientation Not on file Last Filed Vital Signs Vital Sign Reading Time Taken Comments Blood Pressure 133/70 01/14/2024 10:55 AM CDT Pulse 85 01/14/2024 10:55 AM CDT Temperature 36.8 C (98.3 F) 01/14/2024 10:55 AM CDT Respiratory Rate 18 01/14/2024 10:55 AM CDT Oxygen Saturation 95% 01/14/2024 10:55 AM CDT Inhaled Oxygen Concentration - - Weight 111.1 kg (245 lb) 01/14/2024 10:55 AM CDT Height 182.9 cm (6') 01/14/2024 10:55 AM CDT Body Mass Index 33.23 01/14/2024 10:55 AM CDT Plan of Treatment Health Maintenance Due Date Last Done Comments COLON MONITORING 1957 COLONOSCOPY - COLON CA SCREENING 1957 CT COLONOGRAPHY - COLON CA SCREENING 1957 FIT - COLON CA SCREENING 1957 FLEX SIG - COLON CA SCREENING 1957 LIPID TESTING 1957 MEDICARE AWV 12 MONTHS 1957 HEPATITIS C SCREENING 02/13/1975 DTAP/TDAP/TD VACCINES (1 - Tdap) 02/18/1976 PNEUMOCOCCAL VACCINE 50+ (1 of 1 - PCV) 2007 ZOSTER VACCINE (1 of 2) 2007 SCREENING FOR DIABETES 12/07/2023 4, 01/29/2014, 01/29/2014, Additional history exists COVID-19 VACCINE ( - 2023- season) 2024 DEPRESSION SCREENING 07/19/2024 COLOGUARD (AGES 45-75) - COLON CA SCREENING 11/13/2024 11/13/2021 Colorectal Cancer Screening 11/13/2024 INFLUENZA VACCINE (Season Ended) 2025 Respiratory Syncytial Virus (RSV) Vaccine Pt: or over 60 yrs (1 - 1-dose 75+ series) 02/18/2032 HEPATITIS B VACCINE Aged Out No longe r eligible based on patient's age to complete this topic HIB VACCINE Aged Out No longer eligi ble based on patient's age to complete this topic HPV VACCINE Aged Out No longer eligi ble based on patient's age to complete this topic MENINGOCOCCAL (Group B) VACCINE SHARED DECISION-MAKING Aged Out No longer eligible based on patient's age to complete this topic MENINGOCOCCAL GROUPS A/C/Y/W VACCINE Aged Out No longer eligible based on patient's age to complete this topic Procedures Procedure Name Priority Date/Time Associated Diagnosis Comments GLUCOSE WHOLE BLOOD Routine 01/29/2014 9 :11 AM CDT from Last 3 Months or Most Recently Relevant to Health Maintenance Results * GLUCOSE WHOLE BLOOD (01/29/2014 9:11 AM CDT) Glucose Whole Blood 110 70 - 110 mg/dL [facility] Blood specimen (specimen) BLOOD SPECIMEN / Unknown 01/29/2014 9:11 AM CDT 01/29/2014 9:14 AM CDT us Joseph Brown MD LAB - CHEMISTRY ORDERABLES Fin al Result [address] [phone] from Last 3 Months or Most Recently Relevant to Health Maintenance Insurance MEDICARE [facility] MEDICARE [facility]
== END 2024-11-20 13:04 | disposition home or self-care (01) ==
LOC: CHSIMG 13:05
PROVIDERS: PCP Family Medicine; Visit Provider Family Medicine
DX: R09.89 Other specified symptoms and signs involving the circulatory and respiratory systems (principal)
CPT/HCPCS: 93922

== ENCOUNTER 2024-11-28 09:26 | Outpatient (CLI) | payer MEDICARE, SELFPAY ==
--- NOTE | ~2024-11-28 | MM_ITS ---
EXAMINATION: MM diagnostic coty LT w jorge HISTORY: Left breast firmer than right TECHNIQUE: 3-D tomosynthesis images of the left breast were performed and synthetic 2-D images were g enerated. CAD analysis was submitted and interpreted. COMPARISON: None BREAST PARENCHYMAL COMPOSITION:Not Dense. There are scattered areas of fibroglandular density. FINDINGS: There is fibroglandular tissue in the left subareolar region, asymmetric as compared to the right side, compatible with asymmetric left sided gynecomastia. No suspicious mass or calcification seen. IMPRESSION: Left gynecomastia, asymmetric from the right side. BI-RADS Category 2: Benign finding(s). Reviewed, dictated and finalized at location .
--- OUTSIDE RECORDS SUMMARY | 2024-11-28 09:40 | XMS_ITS | Clinical Summary ---
Author Organization [facility] [employer] Address [address] [place] [address] Care Team Providers Care Tamale Maker Name Role Phone Unavailable Primary Care Provider Unavailabl e Source Comments [facility],non-owned Affiliates and Associated Physician Practices is amultiple site organization consisting of ambulatory clinics and hospital sitesin [place], [place], [place] and [place]. This disclosure is being madepursuant to the Care Everywhere program and may not contain all information available regarding this patient. 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
== END 2024-11-28 09:27 | disposition home or self-care (01) ==
LOC: CHSIMG 09:28
PROVIDERS: PCP Family Medicine; Visit Provider Family Medicine
DX: N63.23 Unspecified lump in the left breast, lower outer quadrant (principal); N62 Hypertrophy of breast
CPT/HCPCS: 77061; 77065; G0279

== ENCOUNTER 2025-03-21 07:56 | Outpatient (RCR) | payer MEDICARE, SELFPAY ==
--- NOTE | 2025-03-21 08:51 | OPREHPOC ---
Outpatient Therapy Plan of Care This is a Multidisciplinary Plan of Care that may contain components documented by all disciplines (PT, OT, and ST.) PT Problem 1 PT Problem #1 Knowledge Deficit PT Goal 1 Goal / Goal Update Independent and compliant with HEP. Target Visit 2 PT Problem 2 PT Problem #2 Pain PT Goal 1 Goal / Goal Update Pt to report improved sleep quality indicating less low back pain when sleeping. Pt to report only mild pain when ambulating. Target Visit 12 PT Problem 3 PT Problem #3 Impaired Strength PT Goal 1 Goal / Goal Update Pt to improve bilat hip flexion strength to 5/5. Pt to improve bilat knee strength to 5/5. Target Visit 12 PT Problem 4 PT Problem #4 Impaired Range of Motion PT Goal 1 Goal / Goal Update Pt to demonstrate pain-free lumbar AROM to improve ability to perform functional tasks involving reaching for objects and working in his shop. Target Visit 12 PT Problem 5 PT Problem #5 Impaired Functional Mobility PT Goal 1 Goal / Goal Update Pt to report 10% reduction in perceived disability on Oswestry. Target Visit 12
--- NOTE | 2025-03-21 08:51 | PTOPEVAL1 ---
Assessment and note entered by Zoila Dillard, PT Evaluation Information Assessment Status Evaluation ICD-10 Condition Codes (PT) Pain in low back M54.50 Onset 03/14/25 Subjective Information Pt reports he's had back pain for years and that it's recently flared up in the last week. He notes some aching pain in his lower back that goes all the way down both legs. Denies NTB. He reports the pain gets so bad that he can barely walk, and verbalizes that even walking from the waiting room at therapy to the treatment table was almost too much. He states his doctor checked him out and said he doesn't have much feeling in his feet, and that his L leg is weaker than his R. Apart from difficulty walking pt has difficulty getting out of low chairs and going up stairs to get into his home. He reports the longer he stands and walks, the more his pain worsens. He currently ambulates with a cane and states he's unable to walk without it, also wears an AFO on his L leg and an ankle brace on his R. Reports he's had 3 previous back surgeries. He states that he just finished up an oral steroid pack today, he's getting an MRI tomorrow on his lower back and follows up with his doctor next . Reported Pain Level Pain Score 0: Self Report Assessment PT Clinical Summary Mr. Kimbrough is a 70 yo male presenting for skilled PT evaluation for low back pain with history of lumbar surgery. He demonstrates lower extremity weakness, hip mm tightness, gait deficits and balance deficits that contribute to high fall risk, as well as a Tinetti score of 16 indicating high risk of falls. Due to these deficits he demonstrates functional impairments in walking, stair climbing and getting out of a chair. He will benefit from skilled PT intervention to address these deficits to improve hip and lumbar stability, strength, and balance to improve safety with functional mobility tasks and ADLs. Plan of Care Interventions Electrical Stimulation,Gait Training,Hot Pack/Cold Pack,Manual Therapy,Neuro Re-education,Patient/ Caregiver Education,Therapeutic Activities, Therapeutic Exercise,Self-Care/Home Management PT Services Indicated Yes Treatment Frequency and 2x/week for 12 visits Duration These treatments will address the objective and functional deficits as defined above. The patient will be advanced safely and appropriately in order for the patient to progress towards his/her prior level of function. Additional exercises will be introduced and as well as a comprehensive home exercise program upon discharge, if needed, ?to ensure carryover of functional gains achieved in the clinic. This treatment plan has been reviewed and agreement upon by the patient.
--- NOTE | 2025-04-19 13:13 | OPREHPOC ---
Outpatient Therapy Plan of Care This is a Multidisciplinary Plan of Care that may contain components documented by all disciplines (PT, OT, and ST.) PT Problem 1 PT Problem #1 Knowledge Deficit PT Goal 1 Goal / Goal Update Independent and compliant with HEP. Target Visit 2 Progress Met PT Problem 2 PT Problem #2 Pain PT Goal 1 Goal / Goal Update Pt to report improved sleep quality indicating less low back pain when sleeping. Pt to report only mild pain when ambulating. Target Visit 12 Progress Not Met PT Problem 3 PT Problem #3 Impaired Strength PT Goal 1 Goal / Goal Update Pt to improve bilat hip flexion strength to 5/5. Pt to improve bilat knee strength to 5/5. Target Visit 12 Progress Not Met PT Problem 4 PT Problem #4 Impaired Range of Motion PT Goal 1 Goal / Goal Update Pt to demonstrate pain-free lumbar AROM to improve ability to perform functional tasks involving reaching for objects and working in his shop. Target Visit 12 Progress Not Met PT Problem 5 PT Problem #5 Impaired Functional Mobility PT Goal 1 Goal / Goal Update Pt to report 10% reduction in perceived disability on Oswestry. Target Visit 12 Progress Not Met
--- NOTE | 2025-04-19 13:13 | PTOPPROG ---
Assessment and note entered by Landy Martins, PT Evaluation Information Assessment Status Progress ICD-10 Condition Codes (PT) Pain in low back M54.50 Onset 03/14/25 Subjective Information Ned reports he continues have back pain that wakes him after 3-4 hours of falling asleep. He ng worse pain with walking rating it an 8/10. Assessment PT Clinical Summary Ned Kimbrough has completed 10 skilled PT visits for low back pain with history of lumbar surgery. He continues to report increased leg pain with ambulation and low back pain that wakes him. He demonstrates improvements in hip strength. He continues to have impaired gait, decreased endurance, and decreased core strength. He is progressing toward his goals but has not met them yet. He will continue to benefit from skilled PT to further address these limitations. Plan of Care Interventions Electrical Stimulation,Gait Training,Hot Pack/Cold Pack,Manual Therapy,Neuro Re-education,Patient/ Caregiver Education,Therapeutic Activities, Therapeutic Exercise,Self-Care/Home Management PT Services Indicated Yes Treatment Frequency and Continue original POC for 2 additional visits Duration These treatments will address the objective and functional deficits as defined above. The patient will be advanced safely and appropriately in order for the patient to progress towards his/her prior level of function. Additional exercises will be introduced and as well as a comprehensive home exercise program upon discharge, if needed, ?to ensure carryover of functional gains achieved in the clinic. This treatment plan has been reviewed and agreement upon by the patient.
== END 2025-06-19 23:59 | disposition home or self-care (01) ==
LOC: CHSPT 07:56
DX: M54.50 Low back pain, unspecified (principal)
CPT/HCPCS: 97014; 97110; 97112; 97161; G0283

== ENCOUNTER 2025-05-31 06:52 | Outpatient (CLI) | payer MEDICARE, SELFPAY ==
--- NOTE | ~2025-05-31 | MR_ITS ---
EXAMINATION: MR cervical spine wo con DATE: 05/31/2025 07:48 INDICATION: Postlumbar surgery TECHNIQUE: Magnetic resonance imaging (MRI) of the cervical spine was performed without intravenous contrast. Sequences included sagittal T2-weighted FSE, sagittal T2-weighted FS FSE, sagittal T1-weighted FSE, axial MERGE, and axial T2-weighted FSE. COMPARISON: None FINDINGS: Degenerative changes are present throughout the cervical spine involving disc spaces, uncovertebral joints and pedicles. No acute or aggressive bony or soft tissue process seen. No discrete medullary cord lesions or gross myelopathic changes within the cervical cord. In the visualized intracranial/posterior fossa contents, hyperintense T2- weighted signal change noted in the pontine portion of the brainstem. Mild volume loss also noted. Level specific findings as follows: C2-3: Mild degenerative change C3-4: Moderately severe posterior spondylosis and disc bulging with moderately severe bilateral neural foraminal narrowing. No discrete disc protrusion or spinal canal stenosis. C4-5: Moderately severe posterior disc osteophyte complex/spondylosis with moderate to severe left and moderate right-sided neural foraminal narrowing. No spinal canal stenosis or discrete disc protrusion. C5-6: No spinal canal stenosis or discrete disc protrusion. Posterior disc osteophyte complex and/or spondylosis. Moderate to severe left and moderate right-sided neural foraminal narrowing also present at this level. C6-7: No spinal canal stenosis or discrete disc protrusion. Posterior disc osteophyte and or spondylosis. Moderate to severe bilateral neural foraminal narrowing right worse than left. C7-T1: No severe degenerative changes. Approximately 2 mm anterolisthesis C7 on T1 appears degenerative. IMPRESSION: 1. Multilevel degenerative changes throughout the cervical spine. No spinal canal stenosis or discrete disc protrusion. No myelopathic changes within the cord. Advanced neural foraminal narrowing noted at several levels as detailed above. 2. Nonspecific T2 weighted hyperintense signal changes in the pontine portion of the brainstem. Correlate with clinical presentation for additional imaging as clinically appropriate. Reviewed, dictated and finalized at location A. K MACHINE OPERATOR IMPRESSION: 1. Multilevel degenerative changes throughout the cervical spine. No spinal can al stenosis or discrete disc protrusion. No myelopathic changes within the cord . Advanced neural foraminal narrowing noted at several levels as detailed above . 2. Nonspecific T2 weighted hyperintense signal changes in the pontine portion o f the brainstem. Correlate with clinical presentation for additional imaging as clinically appropriate.
== END 2025-05-31 06:53 | disposition home or self-care (01) ==
DX: Z98.890 Other specified postprocedural states (principal)
CPT/HCPCS: 72141

== ENCOUNTER 2025-06-11 08:33 | Outpatient (CLI) | payer MEDICARE, SELFPAY ==
--- NOTE | 2025-06-11 08:38 | EST_ITS ---
Patient Info Name: Ned Kimbrough Age: 70 years : 1955 Gender: Male Ht: 73 in Wt: 250 lbs BSA: 2.45 m2 HR: 89 bpm BP: 161 / 50 mmHg Heart Rhythm: Sinus Rhythm Technical Quality: Good Exam Date: 06/11/2025 8:38 AM Patient Status: O Admit Date: 06/11/2025 Exam Type: CA stress fifi w NM A regadenoson stress test was performed. Staff Referring Physician: Rishabh Win DO Attending Provider: Rishabh Win DO Summary 1. 1. Negative lexiscan stress test for ischemic ST changes by ECG criteria. 2. 2. Baseline hypertension. 3. 3. Nuclear scan to follow and will be reported separately. Please correlate with it. Protocol: LEXISCAN Stress ECG Details Stage: REST Duration (min): 2 min : 21 sec HR (bpm): 89 SBP (mmHg): 161 DBP (mmHg): 50 Stage: REST Duration (min): 6 min : 2 sec HR (bpm): 87 SBP (mmHg): 161 DBP (mmHg): 50 Stage: STAGE 1 Duration (min): 0 min : 17 sec HR (bpm): 89 SBP (mmHg): 161 DBP (mmHg): 50 Stage: RECOVERY Duration (min): 0 min : 42 sec HR (bpm): 105 SBP (mmHg): 161 DBP (mmHg): 50 Stage: RECOVERY Duration (min): 1 min : 42 sec HR (bpm): 125 SBP (mmHg): 161 DBP (mmHg): 50 Stage: RECOVERY Duration (min): 2 min : 42 sec HR (bpm): 115 SBP (mmHg): 161 DBP (mmHg): 50 Stage: RECOVERY Duration (min): 3 min : 42 sec HR (bpm): 110 SBP (mmHg): 161 DBP (mmHg): 50 Stage: RECOVERY Duration (min): 4 min : 42 sec HR (bpm): 103 SBP (mmHg): 161 DBP (mmHg): 50 Stage: RECOVERY Duration (min): 5 min : 42 sec HR (bpm): 99 SBP (mmHg): 161 DBP (mmHg): 50 Stage: RECOVERY Duration (min): 6 min : 42 sec HR (bpm): 98 SBP (mmHg): 161 DBP (mmHg): 50 Stage: RECOVERY Duration (min): 7 min : 42 sec HR (bpm): 94 SBP (mmHg): 82 DBP (mmHg): 65 Stage: RECOVERY Duration (min): 8 min : 42 sec HR (bpm): 93 SBP (mmHg): 122 DBP (mmHg): 68 Stage: RECOVERY Duration (min): 9 min : 42 sec HR (bpm): 94 SBP (mmHg): 114 DBP (mmHg): 68 Stage: RECOVERY Duration (min): 10 min : 12 sec HR (bpm): --- SBP (mmHg): 114 DBP (mmHg): 68 Rest HR: 87 bpm Peak HR: 126 bpm Rest Sys BP: 161 mmHg Peak Sys BP: 122 mmHg Max Pred HR: 152 bpm % Max Pred HR: 83 % Target HR: 129 bpm Max RPP: 15,372 bpm*mmHg BP Response: Normal blood pressure response Termination Reason: Completed Protocol Cardiac Symptoms: None Total Time: 0 min : 17 sec Rest Zhao BP: 50 mmHg Peak Zhao BP: 68 mmHg Total Dose: 0.4 mg Aminophylline Dose: 50 mg Resting ECG Normal sinus rhythm, consider anterior infarct, age indeterminate. Stress ECG No abnormal ST/T wave changes. Arrhythmias Occasional PVCs. Report Signatures
--- OUTSIDE RECORDS SUMMARY | 2025-06-11 08:48 | XMS_ITS | Clinical Summary ---
Author Organization [facility] [employer] Address [address] 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 This disclosure is being madepursuant to the Care Everywhere program and may not contain all information available regarding this patient. Last updated 18.[facility] [employer] Allergies No known active allergies Medications * Be aware that medications may not be up to date on this document. Alwaysverify current medications with the patient. traMADol (ULTRAM) 50 MG tablet Take 1 [...] fluticasone propionate (Flonase) 50 MCG/ACT nasal spray [place] 1 (one) spray to 2 (two) sprays [...] (one) tablet by mouth once daily Active gqzzn-0-bxyo ethyl esters (Lovaza) 1 g capsule Take 1 (one) capsule by mouth once daily Active valsartan (Diovan) 160 MG tablet Take 1 (one) tablet by mouth 2 times daily 01/26/2025 Active hydrALAZINE (Apresoline) 50 MG tablet Take 1 (one) tablet by mouth 2 times daily 02/08/2025 Active methylPREDNISol one (Medrol Dosepak) 4 MG tablet Take by mouth as directed Take as directed by mouth per package instructions. 21 tablet 03/15/2025 Active Active Problems Problem Noted Date Diagnosed Date Obesity 03/14/2025 Left leg DVT 03/14/2025 Edema of left lower extremity 03/14/2025 Dyslipidemia 03/14/2025 Congenital pes cavus 02/10/2017 Overview (10/18/2017): ICD-10 [...] 01/24/2014 Complication of surgical procedure 01/24/2014 11/23/2023 Encounters Date Type Department Care Team Description 06/07/2025 Telephone [facility] - Orthopedics [address] [place] [phone] James Martinez MD Results 05/17/2025 12:57 PM CDT - 05/17/2025 11:59 PM CDT Hospital Encounter [facility] OP DRAW STATION [address] [place] [address] James Martinez MD Discharge Disposition: Home or Self Care 05/17/2025 12:00 PM CDT Office Visit [facility] - Orthopedics [address] [place] [phone] James Martinez MD Status post lumbar spine surgery for decompression of spinal cord (Primary Dx); Low back pain, unspecified back pain laterality, unspecified chronicity, unspecified whether sciatica present; Abnormal electroencephalogram (EEG); Other abnormal glucose; Abnormal coagulation profile; Spinal stenosis of lumbar region with neurogenic claudication 05/17/2025 Travel 04/20/2025 8:37 AM CDT - 04/20/2025 11:59 PM CDT Hospital Encounter [facility] Health Pain Care [address] [place] [address] Oziel Mccollum MD Discharge Disposition: Home or Self Care 04/20/2025 Travel 04/04/2025 1:00 PM CDT Office Visit [facility] - Pain Management [address] [place] [address] Oziel Mccollum MD Lumbar radiculitis (Primary Dx); Status post lumbar spine surgery for decompression of spinal cord; S/P lumbar spinal fusion; Lumbar spondylosis 04/02/2025 3:15 PM CDT Video Visit [facility] - Orthopedic Surgery [address] [place] [address] James Martinez MD Status post lumbar spine surgery for decompression of spinal cord 03/29/2025 2:15 PM CDT Office Visit [facility] [address] [place] [phone] James Martinez MD Lumbosacral spondylosis without myelopathy (Primary Dx); Status post lumbar spine surgery for decompression of spinal cord; Low back pain, unspecified back pain laterality, unspecified chronicity, unspecified whether sciatica present; Sacroiliac dysfunction 03/29/2025 Travel 03/26/2025 Travel 03/22/2025 5:28 PM CDT - 03/22/2025 11:59 PM CDT Hospital Encounter [facility] [address] [place] [address] James Martinez MD Discharge Disposition: Home or Self Care 03/15/2025 9:53 AM CDT - 03/15/2025 11:59 PM CDT Hospital Encounter [facility]IC RAD CSM [address] [place] [address] James Martinez MD Discharge Disposition: Home or Self Care 03/15/2025 9:45 AM CDT Office Visit [facility] [address] [place] [phone] James Martinez MD Lumbosacral spondylosis without myelopathy (Primary Dx); Status post lumbar spine surgery for decompression of spinal cord; Low back pain, unspecified back pain laterality, unspecified chronicity, unspecified whether sciatica present; Sacroiliac dysfunction 03/15/2025 Travel 03/12/2025 Orders Only [facility] [address] [place] [phone] James Martinez MD Lumbosacral spondylosis without myelopathy ; Status post lumbar spine surgery for decompression of spinal cord; Low back pain, unspecified back pain laterality, unspecified chronicity, unspecified whether sciatica present from Last 3 Months Immunizations Immunization Administration Dates Next Due Pneumococcal Pcv13 Conj 09/01/2016 Social History Tobacco Use Types Packs/Day Years Used Date Smoking Tobacco: Never Passive Smoke Exposure: Never Smokeless Tobacco: Never Alcohol Use Standard Drinks/Week Comments No 0 (1 standard drink = 0.6 oz pur e alcohol) PHQ-2 Answer Date Recorded Patient Health Questionnaire-2 Score 1 05/17/2025 Sex and Gender Information Value Date Recorded Sex Assigned at Not on file Legal Sex Male 5:46 PM PERFORMANCE IMPROVEMENT SPECIALIST Gender Identity Not on file Sexual Orientation Not on file Last Filed Vital Signs Vital Sign Reading Time Taken Comments Blood Pressure 136/75 04/20/2025 8:48 AM CDT Pulse 86 04/20/2025 8:48 AM CDT Temperature 36.7 C (98 F) 04/20/2025 8:48 AM CDT Respiratory Rate 20 04/20/2025 8:48 AM CDT Oxygen Saturation 95% 01/14/2024 10:55 AM CDT Inhaled Oxygen Concentration - - Weight 111.1 kg (245 lb) 01/14/2024 10:55 AM CDT Height 182.9 cm (6') 01/14/2024 10:55 AM CDT Body Mass Index 33.23 01/14/2024 10:55 AM CDT Plan of Treatment Upcoming Encounters Date Type Department Care Team (Late st Contact Info) Description 06/11/2025 1:30 PM PERFORMANCE IMPROVEMENT SPECIALIST Office Visit [facility] - Orthopedic Surgery [address] [place] [phone] James Martinez MD [address] [facility] [place] [address] 06/11/2025 1:30 PM PERFORMANCE IMPROVEMENT SPECIALIST Appointment [facility] - Orthopedics [address] [place] [address], [address] [place] [address] James Martinez MD [address] [facility] [place] [address] 06/19/2025 7:05 AM PERFORMANCE IMPROVEMENT SPECIALIST Hospital Encounter [facility] OP [address] [place] [phone] James Martinez MD [address] [facility] [place] [address] Surgery General 06/19/2025 7:05 AM PERFORMANCE IMPROVEMENT SPECIALIST Anesthesia Event [facility] [address] [place] [phone] Alanna Aquino, LANGUAGE TRANSLATOR-BOXING MACHINE OPERATOR [address] [facility] [place] [address] 06/19/2025 7:05 AM PERFORMANCE IMPROVEMENT SPECIALIST - 06/19/2025 11:50 AM PERFORMANCE IMPROVEMENT SPECIALIST Surgery [facility] [address] [place] [address] James Martinez MD [address] [facility] [place] [address] L1-L2 TRANSFORAMINAL LUMBAR INTERBODY FUSION, EXPLORATION OF THE PREVIOUS FUSION MASS AND REPLACEMENT OF THE IMPLANTS Scheduled Procedures Name Priority Associated Diagnoses Date/Ti me FUSION TRANSFORAMINAL LUMBAR INTERBODY (TLIF) Spinal stenosis of lumbar region with neurogenic claudication 06/19/2025 7:05 AM PERFORMANCE IMPROVEMENT SPECIALIST Health Maintenance Due Date Last Done Comments COLON MONITORING 1957 COLONOSCOPY - COLON CA SCREENING 1957 CT COLONOGRAPHY - COLON CA SCREENING 1957 FIT - COLON CA SCREENING 1957 FLEX SIG - COLON CA SCREENING 1957 LIPID TESTING 1957 MEDICARE AWV 12 MONTHS 1957 HEPATITIS C SCREENING 02/13/1975 DTAP/TDAP/TD VACCINES (1 - Tdap) 02/18/1976 ZOSTER VACCINE (1 of 2) 2007 PNEUMOCOCCAL VACCINE 50+ (2 of 2 - PCV20 or PCV21) 09/01/2017 09/01/2016 COVID-19 VACCINE ( - 2024-2 6 season) 2025 INFLUENZA VACCINE (#1) 2025 COLOGUARD (AGES 45-75) - COL ON CA SCREENING 11/28/2027 11/27/2024, 11/13/2021 Colorectal Cancer Screening 11/28/2027 Respiratory Syncytial Virus (RSV) Vaccine Pt: or over 60 yrs (1 - 1-dose 75+ series) 02/18/2032 DEPRESSION SCREENING Completed 03/15/2025 HEPATITIS B VACCINE Aged Out No longe [...] A/C/Y/W VACCINE Aged Out No longer eligible b ased on patient's age to complete this topic Procedures Procedure Name Priority Date/Time Associated Diagnosis Comments MRI CERVICAL SPINE WO CONTRAST Routine 05/31/2025 12:22 PM PERFORMANCE IMPROVEMENT SPECIALIST URINALYSIS REFLEX MICROSCOPIC REFLEX CULTURE Routine 05/17/2025 2:16 PM CDT Status post lumbar spine surgery for decompression of spinal cord TYPE + SCREEN PANEL Routine 05/17/2025 1 :54 PM CDT Status post lumbar spine surgery for decompression of spinal cord PTT Routine 05/17/2025 1:54 PM CDT Status post lumbar spine surgery for decompression of spinal cord Abnormal coagulation profile HEMOGLOBIN A1C Routine 05/17/2025 1:54 PM CDT Status post lumbar spine surgery for decompression of spinal cord Other abnormal glucose ERYTHROCYTE SEDIMENTATION RATE Routine 05/17/2025 1:54 PM CDT Status post lumbar spine surgery for decompression of spinal cord C-REACTIVE PROTEIN Routine 05/17/2025 1: 54 PM CDT Status post lumbar spine surgery for decompression of spinal cord COMPREHENSIVE METABOLIC PANEL Routine 05/17/2025 1:54 PM CDT Status post lumbar spine surgery for decompression of spinal cord CBC W AUTO DIFFERENTIAL Routine 05/17/2025 1:54 PM CDT Status post lumbar spine surgery for decompression of spinal cord Abnormal electroencephalogram (EEG) PT-INR STAT 05/17/2025 1:54 PM CDT Status post lumbar spine surgery for decompression of spinal cord PAIN MANAGEMENT PROCEDURE TIME Routine 04/20/2025 9:14 AM CDT Lumbar radiculopathy MRI LUMBAR SPINE WO CONTRAST Routine 03/22/2025 6:13 PM CDT Low back pain, unspecified back pain laterality, unspecified chronicity, unspecified whether sciatica present XR LUMBAR SPINE 2 OR 3VW Routine 03/15/2025 10:02 AM CDT Lumbosacral spondylosis without myelopathy Status post lumbar spine surgery for decompression of spinal cord Low back pain, unspecified back pain laterality, unspecified chronicity, unspecified whether sciatica present from Last 3 Months Results * MRI Cervical Spine Wo Contrast (05/31/2025 12:22 PM PERFORMANCE IMPROVEMENT SPECIALIST) Anatomical Region Laterality Modality Pelvis Magnetic Resonan ce us Historical Provider MR ORDERABLES Final Res ult * URINALYSIS REFLEX MICROSCOPIC REFLEX CULTURE (05/17/2025 2:16 PM CDT) Color UA Yellow Yellow, Straw 05/17/2025 3:10 PM [facility] Clarity UA Clear Clear 05/17/2025 3:10 PM [facility] Glucose UA Normal Normal 05/17/2025 3:10 PM [facility] Bilirubin UA Negative Negative 05/17/2025 3:10 PM [facility] Ketone UA Negative Negative 05/17/2025 3:10 PM [facility] Specific Evergreen UA 1.013 1.005 - 1.030 05/17/2025 3:10 PM [facility] Blood UA Negative Negative 05/17/2025 3:10 PM [facility] pH UA 7.0 5.0 - 8.0 05/17/2025 3:10 PM [facility] Protein UA Negative Negative 05/17/2025 3:10 PM [facility] Urobilinogen UA Normal Normal mg/dL 05/17/2025 3:10 PM [facility] Nitrite UA Negative Negative 05/17/2025 3:10 PM [facility] Leukocyte Esterase UA Negative Negative 05/17/2025 3:10 PM [facility] Reflex Status Culture not indicated 05/17/2025 3:10 PM [facility] Urine Microscopy Urine microscopy not indicated 05/17/2025 3:10 PM CDT [facility] Urine URINE SPECIMEN OBTAINED BY CLEAN CATCH PROCEDURE / Unknown Collection / Unknown 05/17/2025 2:16 PM CDT 05/17/2025 3:00 PM CDT James Martinez MD LAB - URINALYSIS ORDERABLES Cookie l Result [address] [address], [facility] [phone] * C-REACTIVE PROTEIN (05/17/2025 1:54 PM CDT) C-Reactive Protein 0.5 <=0.5 mg/dL 05/17/2025 3:04 PM CDT [facility] Blood BLOOD SPECIMEN / Unknown Lab Venipuncture / Unknown 05/17/2025 1:54 PM CDT 05/17/2025 2:06 PM CDT James Martinez MD LAB - CHEMISTRY ORDERABLES Final Result Performing Organization Address City/[facility]/ZIP Co de Phone Number [address] [address], [facility] [phone] * HEMOGLOBIN A1C (05/17/2025 1:54 PM CDT) Hemoglobin A1c 5.5 <=5.6 % 05/17/2025 2:55 PM CDT [facility] Estimated Average Glucose 111 mg/dL 05/17/2025 2:55 PM CDT [facility] Comment: HbA1c Interpretation: Normal : < 5.7% Pre-diabetes: 5.7-6.4% Diabetes: Equal to or greater than 6.5% Test results diagnostic of diabetes should be repeated for confirmation. Treatment target values recommended by ADA and other clinical organizations should be used to evaluate metabolic control in patients. Reference: [place] [employer], Standards of Care in Diabetes -2020 In patients 70 years and older consider HbA1c target range of 7.0-7.5% (Reference: Anthony Maxwell et al. JAMDA. 2012) The Sebia assay for the measurement of HbA1c is a National Glycohemoglobin Standardization Program (NGSP) certified method. Blood BLOOD SPECIMEN / Unknown Lab Venipuncture / Unknown 05/17/2025 1:54 PM CDT 05/17/2025 2:05 PM CDT James Martinez MD LAB - CHEMISTRY ORDERABLES Final Result Performing Organization Address [facility]/ZIP Co de Phone Number [facility] [address] [place] [address], [facility] [phone] * TYPE + SCREEN PANEL (05/17/2025 1:54 PM CDT) Antibody Screen NEG 3:24 PM CDT [facility] ABO Rh A POS 05/17/2025 3:24 PM CDT [facility] Blood Bank BLOOD SPECIMEN / Unknown Lab Venipuncture / Unknown 05/17/2025 1:54 PM CDT 05/17/2025 2:21 PM CDT James Martinez MD LAB - BLOOD BANK ORDERABLES Cookie l Result Performing Organization Address [facility] de Phone Number [facility] [address] [place] [address], [place] [phone] * PTT (05/17/2025 1:54 PM CDT) APTT 24.9 23.0 - 38.4 Seconds 05/17/2025 2:32 PM CDT [facility] Comment:Suggested therapeuti c range for full dose I.V. unfractionated heparin therapy for venous thromboembolism is 71 to 109 seconds. Blood BLOOD SPECIMEN / Unknown Lab Venipuncture / Unknown 05/17/2025 1:54 PM CDT 05/17/2025 2:01 PM CDT James Martinez MD LAB - COAGULATION ORDERABLES Fin al Result Performing Organization Address [facility] Co de Phone Number [facility] [address] [address], [facility] [phone] * PT-INR (05/17/2025 1:54 PM CDT) Pathologist [facility] PT 12.9 12.1 - 14.8 Seconds 05/17/2025 2:32 PM CDT [facility] INR 1.0 See Comment 05/17/2025 2:32 PM CDT [facility] Comment:The suggested therap eutic range for standard coumadin (warfarin) therapy is an INR of 2.0-3.0. For high-risk patients (Mechanical Mitral Valve Prosthesis, etc.), the suggested prophylactic therapeutic range is an INR of 2.5-3.5. Blood BLOOD SPECIMEN / Unknown Lab Venipuncture / Unknown 05/17/2025 1:54 PM CDT 05/17/2025 2:01 PM CDT James Martinez MD LAB - COAGULATION ORDERABLES Fin al Result [address] [address], [facility] [phone] * ERYTHROCYTE SEDIMENTATION RATE (05/17/2025 1:54 PM CDT) [facility] Erythrocyte Sedimentation Rate Westergren 8 0 - 20 MM/HR 05/17/2025 2:41 PM CDT [facility] Blood BLOOD SPECIMEN / Unknown Lab Venipuncture / Unknown 05/17/2025 1:54 PM CDT 05/17/2025 2:05 PM CDT James Martinez MD LAB - HEMATOLOGY ORDERABLES Cookie l Result [address] [address], [facility] [phone] * (ABNORMAL) CBC WITH DIFFERENTIAL (05/17/2025 1:54 PM CDT) Pathologist [facility] WBC 5.5 4.0 - 10.7 x10E9/L 05/17/2025 2:27 PM [facility] RBC Count 4.64 4.30 - 5.80 x10E12/L 05/17/2025 2:27 PM [facility] Hemoglobin 15.2 13.3 - 17.5 g/dL 05/17/2025 2:27 PM [facility] Hematocrit 43.4 38.7 - 51.1 % 05/17/2025 2:27 PM [facility] MCV 93.5 80.0 - 98.0 fL 05/17/2025 2:27 PM [facility] MCH 32.8 26.7 - 33.6 pg 05/17/2025 2:27 PM [facility] MCHC 35.0 31.7 - 36.3 g/dL 05/17/2025 2:27 PM [facility] RDW-CV 13.1 11.3 - 14.8 % 05/17/2025 2:27 PM [facility] Platelet Count 218 150 - 420 x10E9/L 05/17/2025 2:27 PM [facility] MPV 9.4 7.8 - 11.4 fL 05/17/2025 2:27 PM [facility] Neutrophil % 60.1 41.0 - 74.0 % 05/17/2025 2:27 PM [facility] Lymphocyte % 20.4 17.0 - 47.0 % 05/17/2025 2:27 PM [facility] Monocyte % 12.8(H) 3.0 - 11.0 % 05/17/2025 2:27 PM [facility] Eosinophil % 6.0 0.0 - 7.0 % 05/17/2025 2:27 PM [facility] Basophil % 0.5 0.0 - 1.6 % 05/17/2025 2:27 PM [facility] Immature Granulocytes % 0.2 0.0 - 1.0 % 05/17/2025 2:27 PM [facility] Neutrophil Absolute 3.33 1.60 - 7.50 x10E9/L 05/17/2025 2:27 PM [facility] Lymphocyte Absolute 1.13 1.00 - 4.40 x10E9/L 05/17/2025 2:27 PM T [facility] Monocyte Absolute 0.71 0.15 - 1.00 x10E9/L 05/17/2025 2:27 PM T [facility] Eosinophil Absolute 0.33 0.00 - 0.60 x10E9/L 05/17/2025 2:27 PM T [facility] Basophil Absolute 0.03 0.00 - 0.13 x10E9/L 05/17/2025 2:27 PM T [facility] Blood BLOOD SPECIMEN / Unknown Lab Venipuncture / Unknown 05/17/2025 1:54 PM CDT 05/17/2025 2:05 PM CDT us James Martinez MD LAB - HEMATOLOGY ORDERABLES Cookie milian Result [address] [address], [facility] [phone] * (ABNORMAL) COMPREHENSIVE METABOLIC PANEL (05/17/2025 1:54 PM CDT) BUN 16 7 - 26 mg/dL 05/17/2025 3:04 PM [facility] Creatinine 0.71 0.71 - 1.16 mg/dL 05/17/2025 3:04 PM [facility] Sodium 139 136 - 145 mmol/L 05/17/2025 3:04 PM [facility] Potassium 3.5 3.5 - 4.5 mmol/L 05/17/2025 3:04 PM [facility] Chloride 107 98 - 107 mmol/L 05/17/2025 3:04 PM [facility] CO2 20(L) 22 - 29 mmol/L 05/17/2025 3:04 PM [facility] Glucose 103(H) 70 - 99 mg/dL 05/17/2025 3:04 PM [facility] Calcium 9.2 8.4 - 10.2 mg/dL 05/17/2025 3:04 PM [facility] Protein Total 6.8 6.0 - 8.3 g/dL 05/17/2025 3:04 PM [facility] Albumin 4.3 3.4 - 5.0 g/dL 05/17/2025 3:04 PM [facility] Bilirubin Total 0.5 0.2 - 1.2 mg/dL 05/17/2025 3:04 PM [facility] Alkaline Phosphatase 71 40 - 150 U/L 05/17/2025 3:04 PM [facility] ALT 23 5 - 55 U/L 05/17/2025 3:04 PM [facility] AST 20 5 - 34 U/L 05/17/2025 3:04 PM [facility] Anion Gap 12 6 - 16 05/17/2025 3:04 PM [facility] BUN/Creatinine Ratio 23 7 - 23 05/17/2025 3:04 PM [facility] Osmolality Calculated 289 275 - 295 mOsm/kg 05/17/2025 3:04 PM [facility] Albumin/Globulin Ratio 1.7 1.1 - 2.3 05/17/2025 3:04 PM [facility] eGFR by CKD-EPI >90 >=90 mL/min/1.7 3 m2 05/17/2025 3:04 PM [facility] Comment:Estimated Glomerular Filtration Rate (eGFR) calculated using the CKD-EPI Creatinine Equation (2020), per the National Kidney Foundation and [place] [employer] of Nephrology recommendations. Blood BLOOD SPECIMEN / Unknown Lab Venipuncture / Unknown 05/17/2025 1:54 PM CDT 05/17/2025 2:06 PM CDT us James Martinez MD LAB - CHEMISTRY ORDERABLES Final Result [facility] [address] [place] [address], [facility] [phone] * Pain Management Procedure Time (04/20/2025 9:14 AM CDT) Anatomical Region Laterality Modality Radio Fluoroscop y Narrative 04/20/2025 9:19 AM CDT Oziel Mccollum MD 04/20/2025 9:21 AM PROCEDURE NOTE: left paramedian Interlaminar Epidural Steroid Injection at T12/L-1 DOS: 04/20/2025 Primary pain complaint: Radicular pain Pre-procedure diagnosis: Spinal stenosis Post-procedure diagnosis: Same Attending: Dr. Oziel Castillo MD., Ph.D. The procedure, its benefits, and its risks were explained and written informed consent was obtained from the patient. Immediately prior to starting the procedure, a time-out safety check was conducted. The patient's identification, procedure name, procedure site, and procedure laterality were confirmed with the patient. The patient was positioned prone on a fluoroscopy table with a pillow under the abdomen to help reduce the lumbar lordosis. A pulse ox monitor was attached, and the patient was monitored throughout the procedure. Surgical cap, mask, and sterile gloves were worn. The T12 vertebral level was identified with use of fluoroscopy in AP view. The skin was prepped using ChloraPrep and draped in a sterile fashion. The skin and subcutaneous tissue were anesthetized using 3 mL of 1% plain lidocaine with a 25 gauge 1.5 inch needle. A 3.5 inch 20 gauge Tuohy needle was slowly advanced using the AP fluoroscopic view towards the T12/L-1 epidural space keeping it coaxial to the fluoroscopy beam. The latter part of the needle advancement was guided with fluoroscopy in the SURENDRA view. The epidural space was identified using [id number] technique with normal saline. After negative aspiration for blood or CSF, 2 mL of contrast was injected to confirm the needle placement. The lateral fluoroscopy view showed predominantly dorsal epidural space contrast spread. After negative aspiration for blood or CSF, 3 mL of injectate (1 mL of 40 mg/mL triamcinolone and 2 mL of preservative free normal saline) was injected in increments with intermittent negative aspiration for blood. The needle stylet was reinserted and the needle was removed. The patient tolerated the procedure well and was observed at the [facility] for 20 minutes. Vital signs were stable. The patient was discharged with an escort and given written discharge instructions. PLAN: The patient was advised to contact the Pain Center for any of the followin. Swelling, redness, bleeding, or discharge from injection site 2. Fever greater than 100 degrees F 3. New or worsening back or neck pain 4. New numbness or weakness in arms or legs 5. New urinary difficulty or incontinence, New bowel incontinence 6. Headache after the procedure 7. Any questions regarding the procedure If unable to contact the Pain Center in the event of apparent serious complication(s), the patient was instructed to visit the nearest emergency department for further evaluation. Procedural Imaging Documentation: Hatch images from this procedure were requested to be saved in the PACS system. At the time of this dictation, I have confirmed that the images are present in the PACS system as part of the patient's medical record. I, Oziel Castillo, performed the whole procedure. us Oziel Castillo MD DIAGNOSTIC IMAGING ORDERA BLES Final Result * MRI Lumbar Spine Wo Contrast (03/22/2025 6:13 PM CDT) Anatomical Region Laterality Modality Spine Magnetic Resonan ce 03/31/2025 2:37 PM CDT Impressions 03/31/2025 2:46 PM CDT IMPRESSION: 1. Redemonstration of postoperative changes of combined anterior and posterior spinal fusion at L2-L5 with 2 vertical rods, transpedicular screws and interbody grafts. Blooming artifacts from the instrumentation partially obscure the adjacent structures. The instrumentation is not well evaluated due to the limitation of the modality. Postoperative changes of left L3-L4 and L4-L5 laminectomies. 2. Degenerative disc and joint disease in the lumbar, together with congenital shortening of pedicles, causing severe central canal and lateral recess stenosis at L1-L2 and varying degrees of neuroforaminal stenosis as above. > Interpreting Provider: Mic Oliveira MD on 03/31/2025 2:46 PM Narrative 03/31/2025 2:46 PM CDT PROCEDURE: MRI LUMBAR SPINE WO CONTRAST, DATE/TIME OF EXAM: 03/22/2025 6:13 PM, LOCATION [facility] INDICATION: M54.50: Low back pain, unspecified back pain laterality, unspecified chronicity, unspecified whether sciatica present ADDITIONAL CLINICAL INFORMATION: Ordering Provider Reason For Exam: neurogenic claudication Technologist Note: Additional: EXAMINATION: Magnetic resonance imaging (MRI) of the lumbar spine without contrast TECHNIQUE: MRI of the lumbar spine was performed without intravenous contrast according to standard protocol. FINDINGS: Comparison is made to radiographs of the lumbar spine dated 03/15/2025 and a prior MRI of the lumbar spine dated 10/18/2013. Redemonstration of postoperative changes of combined anterior and posterior spinal fusion at L2-L5 with 2 vertical rods, transpedicular screws and interbody grafts. Blooming artifacts from the instrumentation partially obscure the adjacent structures. The instrumentation is not well evaluated due to the limitation of the modality. Postoperative changes of left L3-L4 and L4-L5 laminectomies. The lumbar spine is straightened with loss of lumbar lordosis. There is mild retrolisthesis of L2 on L3. Vertebral bodies are normal in height without evidence of acute fracture. Other than severe degenerative endplate changes at multiple levels, the bone marrow signal is normal. A hemangioma in the L1 vertebral body. The conus medullaris terminates at the level of L1 and the distal spinal cord signal intensity is normal. Degenerative disc and joint disease is noted at multiple levels as detailed below. 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 L1-L2: There is moderate disc bulge and hypertrophy of the ligamentum flavum. There is severe central canal stenosis and lateral recess. There is moderate to severe bilateral facet osteoarthritis. There is severe left and mild right neural foraminal stenosis. L2-L3: This level is fused. There is mild central canal stenosis. There is moderate bilateral neural foraminal stenosis. L3-L4: This level is fused. There is no central canal stenosis. There is no facet osteoarthritis. There is no neural foraminal stenosis. L4-L5: This level is fused. There is mild central and severe left lateral recess canal stenosis. There is moderate bilateral neural foraminal stenosis. L5-S1: There is moderate disc bulge and a small central disc protrusion. There is no central canal stenosis. There is severe bilateral facet osteoarthritis. There is moderate right and severe left neural foraminal stenosis. Procedure Note Mic Oliveira MD - 03/31/2025 PROCEDURE: MRI LUMBAR SPINE WO CONTRAST, DATE/TIME OF EXAM: :13 PM, LOCATION [facility] INDICATION: M54.50: Low back pain, unspecified back pain laterality, unspecified chronicity, unspecified whether sciatica present ADDITIONAL CLINICAL INFORMATION: Ordering Provider Reason For Exam: neurogenic claudication Technologist Note: Additional: EXAMINATION: Magnetic resonance imaging (MRI) of the lumbar spinewithout contrast TECHNIQUE: MRI of the lumbar spine was performed without intravenous contrast according to standard protocol. FINDINGS: Comparison is made to radiographs of the lumbar spine dated 03/15/2025 and a prior MRI of the lumbar spine dated 10/18/2013. Redemonstration of postoperative changes of combined anterior andposterior spinal fusion at L2-L5 with 2 vertical rods, transpedicular screws and interbody grafts. Blooming artifacts from the instrumentation partially obscure the adjacent structures. The instrumentation is not wellevaluated due to the limitation of the modality. Postoperative changes of leftL3-L4 and L4-L5 laminectomies. The lumbar spine is straightened with loss of lumbar lordosis. There is mild retrolisthesis of L2 on L3. Vertebral bodies are normal in height without evidence of acute fracture. Other than severe degenerativeendplate changes at multiple levels, the bone marrow signal is normal. Ahemangioma in the L1 vertebral body. The conus medullaris terminates at the levelof L1 and the distal spinal cord signal intensity is normal. Degenerativedisc and joint disease is noted at multiple levels as detailed below. 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 L1-L2: There is moderate disc bulge and hypertrophy of the ligamentum flavum. There is severe central canal stenosis and lateral recess. Thereis moderate to severe bilateral facet osteoarthritis. There is severe leftand mild right neural foraminal stenosis. L2-L3: This level is fused. There is mild central canal stenosis. Thereis moderate bilateral neural foraminal stenosis. L3-L4: This level is fused. There is no central canal stenosis. There isno facet osteoarthritis. There is no neural foraminal stenosis. L4-L5: This level is fused. There is mild central and severe leftlateral recess canal stenosis. There is moderate bilateral neural foraminal stenosis. L5-S1: There is moderate disc bulge and a small central disc protrusion. There is no central canal stenosis. There is severe bilateral facet osteoarthritis. There is moderate right and severe left neural foraminal stenosis. IMPRESSION: 1. Redemonstration of postoperative changes of combined anterior and posterior spinal fusion at L2-L5 with 2 vertical rods, transpedicular screws and interbody grafts. Blooming artifacts from the instrumentation partially obscure the adjacent structures. The instrumentation is notwell evaluated due to the limitation of the modality. Postoperative changesof left L3-L4 and L4-L5 laminectomies. 2. Degenerative disc and joint disease in the lumbar, together with congenital shortening of pedicles, causing severe central canal andlateral recess stenosis at L1-L2 and varying degrees of neuroforaminal stenosisas above. > Interpreting Provider: Mic Oliveira MD on 03/31/2025 2:46 PM James Martinez MD MR ORDERABLES Final Result * XR Lumbar Spine 2 or 3Vw (03/15/2025 10:02 AM CDT) Anatomical Region Laterality Modality Spine Radiographic Natalie ging 03/15/2025 10:1 3 AM CDT Impressions 03/15/2025 10:32 AM CDT IMPRESSION: Redemonstration of postsurgical changes of posterior fusion of L2-L5 with unchanged posterior protrusion of L4-L5 bone cage and unchanged alignment. Report dictated by Kylah Dominguez MD (president and ceo). > Dictated by Safety And Health Consultant I, Mahesh Ponce MD have personally reviewed and interpreted this examination/study. > Interpreting Provider: Mahesh Ponce MD on 03/15/2025 10:32 AM Narrative 03/15/2025 10:32 AM CDT PROCEDURE: XR LUMBAR SPINE 2 OR 3VW, DATE/TIME OF EXAM: 03/15/2025 10:02 AM, LOCATION [facility] INDICATION: M47.817: Lumbosacral spondylosis without myelopathy Z98.890: Status post lumbar spine surgery for decompression of spinal cord M54.50: Low back pain, unspecified back pain laterality, unspecified chronicity, unspecified whether sciatica present COMPARISON: Lumbar radiographs dated 11/25/2023 FINDINGS: Redemonstration postsurgical changes of posterior fusion of L2-L5 with associated discectomy and interbody fusion from L2-L3 through L4-L5 with progressed osseous fusion. Unchanged posterior projection of the L4-L5 bone cage. Straightening of the usual lumbar lordosis. Retrolisthesis of L2 on L3. Anterolisthesis of L3 on L4. There is no fracture. Intervertebral disc space narrowing is present most notable at L1-L2 and L5-S1. Procedure Note Mahesh Ponce MD - 03/15/2025 PROCEDURE: XR LUMBAR SPINE 2 OR 3VW, DATE/TIME OF EXAM: 0:02 AM, LOCATION [facility] INDICATION: M47.817: Lumbosacral spondylosis without myelopathy Z98.890: Status post lumbar spine surgery for decompression of spinalcord M54.50: Low back pain, unspecified back pain laterality, unspecified chronicity, unspecified whether sciatica present COMPARISON: Lumbar radiographs dated 11/25/2023 FINDINGS: Redemonstration postsurgical changes of posterior fusion of L2-L5 with associated discectomy and interbody fusion from L2-L3 through L4-L5 with progressed osseous fusion. Unchanged posterior projection of the L4-L5bone cage. Straightening of the usual lumbar lordosis. Retrolisthesis of L2 on L3. Anterolisthesis of L3 on L4. There is no fracture. Intervertebral disc space narrowing is present most notable at L1-L2 and L5-S1. IMPRESSION: Redemonstration of postsurgical changes of posterior fusion of L2-L5with unchanged posterior protrusion of L4-L5 bone cage and unchangedalignment. Report dictated by Kylah Dominguez MD (president and ceo). > Dictated by Safety And Health Consultant I, Mahesh Ponce MD have personally reviewed and interpreted this examination/study. 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
--- OUTSIDE RECORDS SUMMARY | 2025-06-11 08:48 | XMS_ITS | Patient Health Record ---
Author Organization [facility] Address [address] [place], [place] [id number] Care Team Providers Care Software Development Leader Name Role Phone ENID Carranza Unavailable [phone] Hua Nair Unavailable Unavailable Allergies No Known Allergies Reason For Referral No Information Medications Medication SIG (Take, Route, Frequency, Duration) Notes Start Date End Date Status Meloxicam 15 MG Oral Tablet ORAL meloxicam 15 MG Oral TabletOriginal Medicationmeloxicam 15 MG Oral Tablet *Reorder from [facility] for eRx and Interaction Alerts* 06/06/2013 Active aspirin 81 MG Effervescent Oral Tablet ORAL aspirin 81 MG Effervescent Oral TabletOriginal Medicationaspirin 81 MG Effervescent Oral Tablet *Reorder from [facility] for eRx and Interaction Alerts* 06/06/2013 Active fexofenadine hydrochloride 180 MG Oral Tablet [Valorie] ORAL fexofenadine hydrochloride 180 MG Oral Tablet [Valorie]Original Medicationfexofenadine hydrochloride 180 MG Oral Tablet [Valorie] *Reorder from [facility] for eRx and Interaction Alerts* 06/06/2013 Active Social History Social History Additional Details Category Social Info Options Details Migrated Social History Migrated Social History History of tobacco use : , Smoking Status : Never smoked Plan Of Treatment No Information Insurance Providers Payer Name Payer Address Payer Phone Subscriber Number Group Number Insured Name Patient Relationship to Insured Coverage Start Date Coverage End Date Medicare Part B [place] [address] [place] [address] [id number] VAUGHN WATSON Self - patient is the insured [facility] ATTN CLAIMS [address] [place] [address] [id number] [id number] WATSON Self - patient is the insured [employer] [facility] [address] [place], [place] [id number] VAUGHN WATSON Self - patient is the insured
--- NOTE | 2025-06-11 14:00 | WPDCARIOSTRE ---
Nuclear Stress Test INDICATIONS Indications: Preop PROCEDURE Procedure Performed: Myocardial Perf Spect-Multi Procedure: Patient underwent a lexiscan stress test and immediately was injected with 32.9 mCi of cardiolyte. Multiple tomographic images were obtained. These are of good quality. There is no evidence of perfusion defect with stress imaging. A separate resting images were obtained after patient was injected wtih 10.3 mCi of cardiolte. Multiple tomographic images were obtained. These are of good quality. There is no evidence of perfusion defect with rest imaging. CONCLUSION Conclusion: 1. Normal myocardial perfusion imaging demonstrating no perfusion defects with stress or rest imaging. 2. No evidence of reversible ischemia. 3. Left ventriculogram demonstrates normal measured ejection fractoin of 69% with no wall motion abnormalities. 4. TID score 1.14 is not elevated.
== END 2025-06-11 08:34 | disposition home or self-care (01) ==
LOC: CHSCARD 08:35
PROVIDERS: PCP Family Medicine; Visit Provider Internal Medicine Cardiovascular Disease
DX: Z01.810 Encounter for preprocedural cardiovascular examination (principal)
CPT/HCPCS: 78452; 93017; A9502; J0280; J2785